=== PATIENT | female | born 1935 | race Caucasian/White ===

== ENCOUNTER 2019-04-12 11:06 | Emergency (ER) | payer MEDICARE ==
[~2019-04-12] VITALS: Ht 167.6 cm; Wt 73.0 kg
[~2019-04-12 11:06] MED LIST: ASPIR 8181 MG PO; ASPIR-LOW81 MG PO; CALCIUM+D PO; CIPRO500 MG PO; FLAGYL250 MG PO; HYDROCODON-ACE1 EA11 PO; LEXAPRO10 MG PO; LOSARTAN-HCTZ1 EACH PO; LOVASTATIN20 MG PO; METOPROLOL TART25 MG PO; MYRBETRIQ50 MG PO; OMEPRAZOLE40 MG PO; OXYBUTYNIN CHLOR5 M1 PO; OXYBUTYNIN CHLOR5 MG PO
--- NOTE | 2019-04-12 11:22 | NUR ---
DR. TALLEY/Kami POND. IN ROOM TO SEE THE PT. AND UPDATE HER ON POC/ORDERS
[2019-04-12] MEDS ORDERED: BENZONATATE 100 MG CAP PO STA (11:33)
--- NOTE | 2019-04-12 11:56 | Diagnostic Imaging Report ---
EXAMINATION: PA and lateral views of the chest. COMPARISON: 10/09/2016 CLINICAL HISTORY: Cough DISCUSSION: Lines/tubes: None. Lungs: The lungs are well inflated and clear. There is no evidence of pneumonia or pulmonary edema. Pleura: There is no pleural effusion or pneumothorax. Heart and mediastinum: Tortuous thoracic aorta. Small hiatal hernia. Bones and soft tissues: No acute bony abnormalities. Degenerative changes in the thoracic spine IMPRESSION: No acute cardiopulmonary abnormalities. Signed by: Dr. Felix Hernandez M.D. on 04/12/2019 11:52 AM
--- NOTE | 2019-04-12 12:12 | NUR ---
UNABLE TO OBTAIN IV ACCESS. 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
[2019-04-12 12:24] LABS: BASOPHILS % 0.5 % (0.0-1.0); EOSINOPHILS # (AUTO) 0.2 (0.0-0.4); EOSINOPHILS % 3.9 % (0.0-6.0); HEMATOCRIT 34.4 % (34.2-44.1); HEMOGLOBIN 11.4 g/dL (12.0-16.0); LYMPHOCYTES % 16.2 % (18.0-39.1); MEAN CORPUSCULAR HEMOGLOBIN 29.5 pg (28-32); MEAN CORPUSCULAR HGB CONC 33.1 g/dL (31-35); MEAN CORPUSCULAR VOLUME 89.1 fL (81-99); MONOCYTES # (AUTO) 0.6 (0.2-0.8); MONOCYTES % 9.2 % (4.4-11.3); NEUTROPHILS # (AUTO) 4.3 (2.1-6.9); NEUTROPHILS % 69.9 % (38.7-80.0); PLATELET COUNT 210 x10e3/uL (140-360); RED BLOOD COUNT 3.86 x10e6/uL (3.6-5.1); RED CELL DISTRIBUTION WIDTH 13.9 % (11.7-14.4)
--- NOTE | 2019-04-12 12:26 | NUR ---
#20G TO THE LEFT WRIST
[2019-04-12 12:34] LABS: INR 0.92; PARTIAL THROMBOPLASTIN TIME 27.9 seconds (23.8-35.5); PROTHROMBIN TIME 12.8 seconds (11.9-14.5)
[2019-04-12 12:43] LABS: ALANINE AMINOTRANSFERASE 25 IU/L (0-55); ALBUMIN 3.5 g/dL (3.5-5.0); ALBUMIN/GLOBULIN RATIO 1.1 (0.8-2.0); ALKALINE PHOSPHATASE 100 IU/L (40-150); ANION GAP 11.8 mmol/L (8-16); BLOOD UREA NITROGEN 11 mg/dL (7-26); BUN/CREATININE RATIO 15 (6-25); CALCIUM 8.9 mg/dL (8.4-10.2); CARBON DIOXIDE 26 mmol/L (22-29); CHLORIDE 102 mmol/L (98-107); CREATINE KINASE 167 IU/L (29-168); CREATININE, SERUM 0.74 mg/dL (0.57-1.11); EST GLOMERULAR FILTRATION RATE > 60 ML/MIN (60-); GLUCOSE 98 mg/dL (74-118); MAGNESIUM 1.9 MG/DL (1.3-2.1); POTASSIUM 3.8 mmol/L (3.5-5.1); SODIUM 136 mmol/L (136-145)
[2019-04-12 12:54] LABS: BILIRUBIN,URINE NEGATIVE (NEGATIVE); CLARITY,URINE SL CLOUDY (CLEAR); COLOR,URINE YELLOW (YELLOW); KETONES,URINE NEGATIVE (NEGATIVE); LEUKOCYTE ESTERASE ,URINE LARGE (NEGATIVE); NITRITE,URINE POSITIVE (NEGATIVE); PROTEIN,URINE DIPSTICK NEGATIVE (NEGATIVE); URINE UROBILINOGEN 0.2 mg/dL (0.2 - 1)
[2019-04-12 13:08] LABS: BACTERIA,URINE MANY /HPF; EPITHELIAL CELLS,URINE FEW /LPF; WBC,URINE (MAN) 21-50 /HPF (0-5)
[2019-04-12] MEDS ORDERED: CEFTRIAXONE SOD 1 GM/NS 50 ML 50 ML IV ONE (13:30)
[2019-04-12] MEDS ORDERED: CEFUROXIME500 MG PO (13:38)
[2019-04-12] MEDS ORDERED: TESSALON PERLE100 MG PO (13:43)
== END 2019-04-12 14:50 | disposition home or self-care (01) ==
LOC: ER 11:06
DX: R05 Cough (principal); J06.9 Acute upper respiratory infection, unspecified; N30.91 Cystitis, unspecified with hematuria; I10 Essential (primary) hypertension; E78.5 Hyperlipidemia, unspecified; F32.9 Major depressive disorder, single episode, unspecified; Z85.828 Personal history of other malignant neoplasm of skin
CPT/HCPCS: 36415; 71046; 80053; 81001; 82550; 82553; 83735; 83880; 84484; 85025; 85610; 85730; 87086; 87186; 87400; 93005; 99284; J0696

== ENCOUNTER 2020-02-13 14:39 | Emergency (ER) | payer MEDICARE ==
[~2020-02-13] VITALS: Ht 167.6 cm; Wt 77.1 kg
[~2020-02-13 14:39] MED LIST changes: +CEFUROXIME500 MG PO; +TESSALON PERLE100 MG PO
[2020-02-13 16:33] LABS: CLARITY,URINE CLEAR (CLEAR); COLOR,URINE YELLOW (YELLOW); LEUKOCYTE ESTERASE ,URINE NEGATIVE (NEGATIVE); NITRITE,URINE NEGATIVE (NEGATIVE); PROTEIN,URINE DIPSTICK NEGATIVE (NEGATIVE)
[2020-02-13 16:34] LABS: BACTERIA,URINE FEW /HPF; BILIRUBIN,URINE NEGATIVE (NEGATIVE); EPITHELIAL CELLS,URINE RARE /LPF; KETONES,URINE NEGATIVE (NEGATIVE); URINE UROBILINOGEN 0.2 mg/dL (0.2 - 1); WBC,URINE (MAN) 0-5 /HPF (0-5)
[2020-02-13] MEDS ORDERED: SODIUM CHLORIDE 0.9% 1000ML 1,000 ML IV STA (16:55)
[2020-02-13 17:17] LABS: BASOPHILS # (AUTO) 0.1 (0.0-0.1); BASOPHILS % 0.8 % (0.0-1.0); EOSINOPHILS # (AUTO) 0.1 (0.0-0.4); EOSINOPHILS % 2.1 % (0.0-6.0); HEMATOCRIT 36.1 % (34.2-44.1); HEMOGLOBIN 11.8 g/dL (12.0-16.0); LYMPHOCYTES # (AUTO) 1.2 (1.0-3.2); LYMPHOCYTES % 17.8 % (18.0-39.1); MEAN CORPUSCULAR HEMOGLOBIN 30.6 pg (28-32); MEAN CORPUSCULAR HGB CONC 32.7 g/dL (31-35); MEAN CORPUSCULAR VOLUME 93.8 fL (81-99); MONOCYTES # (AUTO) 0.4 (0.2-0.8); MONOCYTES % 6.1 % (4.4-11.3); NEUTROPHILS # (AUTO) 4.7 (2.1-6.9); NEUTROPHILS % 72.7 % (38.7-80.0); PLATELET COUNT 194 x10e3/uL (140-360); RED BLOOD COUNT 3.85 x10e6/uL (3.6-5.1); RED CELL DISTRIBUTION WIDTH 12.6 % (11.7-14.4)
[2020-02-13 17:34] LABS: ALBUMIN 4.2 g/dL (3.5-5.0); ALBUMIN/GLOBULIN RATIO 1.4 (0.8-2.0); ANION GAP 15.4 mmol/L (8-16); CALCIUM 8.6 mg/dL (8.4-10.2); CREATININE, SERUM 0.91 mg/dL (0.57-1.11); POTASSIUM 4.4 mmol/L (3.5-5.1)
--- NOTE | 2020-02-13 17:58 | Emergency Department Note ---
History of Present Illnes History of Present Illness Chief Complaint: Genitourinary History of Present Illness This is a 84 year old female pt sent by Dr. Dunne (covering for Dr Barclay - Urology) for evaluation of urinary retention, pt states that she sees Dr. Barclay for urinary incontinence, pt states that she has not been able to urinate since last night, pt appears to have a distended bladder. 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 Any updates have been documented here. Past Medical History Recent Fever: No Clinical Suspicion of Infectio: No New/Unexplained Change in Ment: No Past Medical History: Hypertension, CAD, Hyperlipedemia Other Medical History: SKIN CANCER Past Surgical History: Hernia Repair Other Surgery: right hand surgery (thumb cyst) Social History Smoking Cessation: Never Smoker Counseling Performed: No Alcohol Use: None Any Illegal Drug Use: No TB Exposure/Symptoms: No Physically hurt or threatened: No Family History Family history of heart diseas: No Other Last Tetanus: UNK Any Pre-Existing Lines (PICC,: No Review of Systems Review of Systems Constitutional: Reports no symptoms EENTM: Reports no symptoms Cardiovascular: Reports no symptoms Respiratory: Reports no symptoms Gastrointestinal: Reports no symptoms Genitourinary: Reports as per HPI Musculoskeletal: Reports no symptoms Integumentary: Reports no symptoms Neurological: Reports no symptoms Psychological: Reports no symptoms Endocrine: Reports no symptoms Hematological/Lymphatic: Reports no symptoms Physical Exam Related Data Allergies: Coded Allergies: Penicillins (Verified Allergy, Mild, RASH, 10/07/16) Sulfa (Sulfonamide Antibiotics) (Verified Allergy, Mild, RASH, 11/05/14) atropine (Verified Allergy, Mild, RASH, 11/05/14) codeine (Verified Allergy, Mild, RASH, 08/17/14) hyoscyamine (Verified Allergy, Mild, RASH, 11/05/14) phenobarbital (Verified Allergy, Mild, RASH, 11/05/14) scopolamine (Verified Allergy, Mild, RASH, 11/05/14) [place] And Derivatives (Verified Adverse Reaction, Intermediate, 04/28/15) Pt reports when she drinks any fruit juices, she gets cramps/GI distress. Triage Vital Signs Vital Signs Date Time Temp Pulse Resp B/P (MAP) Pulse Ox O2 Delivery O2 Flow Rate FiO2 02/13/20 15:05 98.1 63 18 139/76 99 Vital signs reviewed: Yes Physical Exam CONSTITUTIONAL Constitutional: Present well-developed, Present well-nourished HENT HENT: Present normocephalic, Present atraumatic, Present oropharynx clear/moist, Present nose normal HENT L/R: Present left ext ear normal, Present right ext ear normal EYES Eyes: Reports PERRL, Reports conjunctivae normal NECK Neck: Present ROM normal PULMONARY Pulmonary: Present effort normal, Present breath sounds normal CARDIOVASCULAR Cardiovascular: Present regular rhythm, Present heart sounds normal, Present capillary refill normal, Present normal rate GASTROINTESTINAL Abdominal: Present soft, Present nontender, Present bowel sounds normal; Absent tender GENITOURINARY Genitourinary: Present exam deferred SKIN Skin: Present warm, Present dry MUSCULOSKELETAL Musculoskeletal: Present ROM normal NEUROLOGICAL Neurological: Present alert, Present oriented x 3, Present no gross motor or sensory deficits PSYCHOLOGICAL Psychological: Present mood/affect normal, Present judgement normal Results Laboratory Result Diagram: 02/13/20 1654 02/13/20 1654 Laboratory Laboratory Tests Test 02/13/20 16:54 02/13/20 15:45 White Blood Count 6.52 x10e3/uL (4.8-10.8) Red Blood Count 3.85 x10e6/uL (3.6-5.1) Hemoglobin 11.8 g/dL (12.0-16.0) Hematocrit 36.1 % (34.2-44.1) Mean Corpuscular Volume 93.8 fL (81-99) Mean Corpuscular Hemoglobin 30.6 pg (28-32) Mean Corpuscular Hemoglobin Concent 32.7 g/dL (31-35) Red Cell Distribution Width 12.6 % (11.7-14.4) Platelet Count 194 x10e3/uL (140-360) Neutrophils (%) (Auto) 72.7 % (38.7-80.0) Lymphocytes (%) (Auto) 17.8 % (18.0-39.1) Monocytes (%) (Auto) 6.1 % (4.4-11.3) Eosinophils (%) (Auto) 2.1 % (0.0-6.0) Basophils (%) (Auto) 0.8 % (0.0-1.0) Neutrophils # (Auto) 4.7 (2.1-6.9) Lymphocytes # (Auto) 1.2 (1.0-3.2) Monocytes # (Auto) 0.4 (0.2-0.8) Eosinophils # (Auto) 0.1 (0.0-0.4) Basophils # (Auto) 0.1 (0.0-0.1) Absolute Immature Granulocyte (auto 0.03 x10e3/uL (0-0.1) Sodium Level 141 mmol/L (136-145) Potassium Level 4.4 mmol/L (3.5-5.1) Chloride Level 105 mmol/L (98-107) Carbon Dioxide Level 25 mmol/L (22-29) Anion Gap 15.4 mmol/L (8-16) Blood Urea Nitrogen 21 mg/dL (7-26) Creatinine 0.91 mg/dL (0.57-1.11) Estimat Glomerular Filtration Rate 59 ML/MIN (60-) BUN/Creatinine Ratio 23 (6-25) Glucose Level 111 mg/dL (74-118) Calcium Level 8.6 mg/dL (8.4-10.2) Total Bilirubin 1.1 mg/dL (0.2-1.2) Aspartate Amino Transf (AST/SGOT) 31 IU/L (5-34) Alanine Aminotransferase (ALT/SGPT) 30 IU/L (0-55) Alkaline Phosphatase 91 IU/L (40-150) Total Protein 7.2 g/dL (6.5-8.1) Albumin 4.2 g/dL (3.5-5.0) Globulin 3.0 g/dL (2.3-3.5) Albumin/Globulin Ratio 1.4 (0.8-2.0) Urine Color Yellow (YELLOW) Urine Clarity Clear (CLEAR) Urine pH 5.5 (5 - 7) Urine Specific [place] >=1.030 (1.010-1.025) Urine Protein Negative (NEGATIVE) Urine Glucose (UA) Negative (NEGATIVE) Urine Ketones Negative (NEGATIVE) Urine Blood Negative (NEGATIVE) Urine Nitrite Negative (NEGATIVE) Urine Bilirubin Negative (NEGATIVE) Urine Urobilinogen 0.2 mg/dL (0.2 - 1) Urine Leukocyte Esterase Negative (NEGATIVE) Urine RBC None /HPF (0-5) Urine WBC 0-5 /HPF (0-5) Urine Epithelial Cells Rare /LPF (NONE) Urine Bacteria Few /HPF (NONE) Lab results reviewed: Yes Imaging Imaging results reviewed: Yes Assessment & Plan Medical Decision Making MDM ? urinary retention - spoke with Dr Dunne - place [facility], send UA/cx r/o UTI Reassessment Reassessment Lanier placed - only 75 cc out, will check CBC, Chem's r/o renal insuff/failure/anuria Labs normal - DC home, Lanier DC'd, F/U Dr Niarnjan Crenshaw, drink plenty of fluids Assessment & Plan Final Impression: (1) Decreased urine output Depart Disposition: HOME, SELF-CARE Last Vital Signs Date Time Temp Pulse Resp B/P (MAP) Pulse Ox O2 Delivery O2 Flow Rate FiO2 02/13/20 15:05 98.1 63 18 139/76 99 Home Meds Active Scripts Benzonatate (TESSALON PERLE) 100 Mg Capsule, 100 MG PO TID PRN for COUGH, #15 CAP Prov:APRIL REYES CASUALTY UNDERWRITER 04/12/19 Cefuroxime Axetil (CEFUROXIME) 500 Mg Tablet, 500 MG PO BID for 7 Days, #14 TAB Prov:APRIL REYES CASUALTY UNDERWRITER 04/12/19 Reported Medications Aspirin (ASPIR 81) 81 Mg Tablet.dr, 81 MG PO DAILY 10/07/16 Omeprazole (OMEPRAZOLE) 40 Mg Capsule.dr, 40 MG PO BID 11/05/14 Losartan/Hydrochlorothiazide (LOSARTAN-HCTZ 50-12.5 MG TAB) 1 Each Tablet, 50 MG PO BID 08/09/14 Lovastatin (LOVASTATIN) 20 Mg Tablet, 20 MG PO DAILY 08/09/14 Medications in the ED Sodium Chloride 1,000 ml @ 0 mls/hr Q0M STAT IV Last administered on 02/13/20at 17:02; Admin Dose 999 MLS/HR; Start 02/13/20 at 16:55; Stop 02/13/20 at 16:56; Status DC EFREN TALLEY MD Feb 13, 2020 17:58
--- OUTSIDE RECORDS SUMMARY | 2020-02-21 14:03 | XMS REPORT | Clinical Summary ---
Author Author [facility] Organization [facility] Address Unknown Phone Unavailable Care Team Providers [facility] Front Desk Clerk Name Role Phone Danyel Corona MD PCP Allergies Comments Active Allergy Reactions Severity Noted Date Penicillins Rash Low 12/29/2016 Sulfa (Sulfonamide Rash Low 12/29/2016 Antibiotics) Medications End Date Status Medication Sig Dispensed Refills Start Date Active losartan-hydrochlorothiaz TK 1 T PO QD 3 10/25 geraldo (HYZAAR) 50-12.5 mg 7 per tablet Active omeprazole (PriLOSEC) 40 TK 1 C PO QD 2 10/23 MG capsule 7 Active ondansetron (ZOFRAN) 4 MG TK 1 T PO 0 06/ tablet QID PRN FOR 7 7 DAYS Active oxybutynin XL TK 1 T PO QD 3 (DITROPAN-XL) 10 MG 24 hr 7 tablet Active aspirin (ECOTRIN) 81 MG Take 81 mg by 0 enteric coated tablet mouth daily. Active Problems Problem Noted Date UTI (urinary tract infection) 01/01/2017 Functional diarrhea 12/31/2016 Complicated UTI (urinary tract infection) 12/29/2016 Social History Date Tobacco Use Types Packs/Day Years Used Never Smoker Drinks/Week oz/Week Comments Alcohol Use No Sex Assigned at Date Recorded Not on file Last Filed Vital Signs Not on file Plan of Treatment Health Maintenance Due Date Last Done Comments SHINGLES VACCINES (#1) 1984 65+ PNEUMOCOCCAL VACCINE 09/04/1999 (1 of 1 - PPSV23) INFLUENZA VACCINE 12/26/2019 Results Not on fileafter 02/12/2019 Insurance Type Payer Benefit Subscriber ID Effective Phone Address Plan / Dates Group HMO [employer] [id number] [facility] Advance Directives For more information, please contact: [phone] Patient Pickle Maker Explanation Type Date Recorded Advance Directives, 12/29/2016 7:53 PM Living Will and Medical Power of Auth Specialist
--- OUTSIDE RECORDS SUMMARY | 2020-02-21 14:03 | XMS REPORT | Continuity of Care Document ---
Author Author [facility] t Organization [facility] Address [address] [place] [address] Phone Unavailable Care Team Providers Care Research Engineer Name Role Phone MD PRANAV ROMERO PCP Louisa TALLEY Attphys Unavailable Payers Payer Name Policy Type Policy Number Effective Date Expiration Date Karen Soto [facility] [id number] 2014 00:00:00 [facility] Problems Condition Name Condition Details Condition Category Status Onset Date Resolution Date Last Treatment Date Treating Clinician Comments Source UTI (urinary tract infection) UTI (urinary tract infection) Disease Active 2017-01-01 00:00:00 Brad Anderson Functional diarrhea Functional diarrhea Disease Active 2016-12-31 00:00 :00 Brad Anderson Complicated UTI (urinary tract infection) Complicated UTI (urinary tract infection) Disease Active 2016-12-29 00:00:00 [facility] gifty [facility] Diarrhea Diarrhea Problem Active 2015-04-27 00:00:00 [facility] Chest pain Chest pain Problem Active 2014-11-05 00:00:00 [facility] Diverticulitis of intestine Diverticulitis Problem Active [facility] Decreased urine output Problem Active [facility] Allergies, Adverse Reactions, Alerts Allergy Name Allergy Type Status Severity Reaction(s) Onset Date Inacti ve Date Treating Clinician Comments Source atropine sulfate DA Active NE 2017-12-13 00:00:00 [facility] scopolamine hydrobromide DA Active NE 2017-12-13 00:00:00 [facility] hyoscyamine sulfate DA Active NE 2017-12-13 00:00:00 [facility] Penicillins DA Active 2017-12-13 00:00:00 [facility] Sulfa (Sulfonamide Antibiotics) DA Active NE 2017-12-13 00 :00:00 [facility] phenobarbital DA Active NE 2017-12-13 00:00:00 [facility] codeine DA Active 2017-12-13 00:00:00 [facility] belladonna alkaloids DA Active NE 2017-12-13 00:00:00 [facility] grapefruit FA Active 2017-12-13 00:00:00 [facility] diclofenac DA Active 2017-12-13 00:00:00 [facility] levofloxacin DA Active NE 2017-12-13 00:00:00 [facility] Penicillins Propensity to adverse reactions to drug Active Rash 2016-12-29 00:00:00 Brad Hector t Sulfa (Sulfonamide Antibiotics) Propensity to adverse reactions to drug Active Rash 2016-12-29 00:00:00 Burton Anderson Penicillin Allergy to substance Active Mild RASH 2016-10-07 00:00:00 [facility] Chiawuli Tak And Derivatives Propensity to adverse reactions Active Mod erate 2015-04-28 00:00:00 [facility] Sulfa (Sulfonamide Antibiotics) Allergy to substance Active Mild RASH 2014-11-05 00:00:00 [facility] Phenobarbital Allergy to substance Active Mild RASH 2014-11-05 00:00: 00 [facility] Atropine Allergy to substance Active Mild RASH 2014-11-05 00:00:00 [facility] Hyoscyamine Allergy to substance Active Mild RASH 2014-11-05 00:00:00 [facility] Scopolamine Allergy to substance Active Mild RASH 2014-11-05 00:00:00 [facility] Codeine Allergy to substance Active Mild RASH 2014-08-17 00:00:00 [facility] Social History Social Habit Start Date Stop Date Quantity Comments Source Sex Assigned At [facility] Alcohol intake 2016-12-29 00:00:00 2016-12-29 00:00:00 Current non-drinker of alcohol (finding) Brad Anderson Smoking Status Start Date Stop Date Source Never smoker Brad villalobos Medications Ordered Medication Name Filled Medication Name Start Date Stop Da te Current Medication? Ordering Clinician Indication Dosage Frequency Signature (SIG) Comments Components Source Benzonatate (Tessalon Perle) 100 Mg CAPSULE Benzonatat e (Tessalon Perle) 100 Mg CAPSULE 2019-04-12 12:43:00 Yes 100 Thre e Times A Day as needed for Cough [facility] Cefuroxime Axetil (Cefuroxime) 500 Mg TABLET Cefuroxim e Axetil (Cefuroxime) 500 Mg TABLET 2019-04-12 12:38:00 Yes 500 Twice A Day [facility] aspirin (ECOTRIN) 81 MG enteric coated tablet 2017-01-02 16:33:0 2 Yes 81mg QD Take 81 mg by mouth daily. Nam Anderson losartan-hydrochlorothiazide (HYZAAR) 50-12.5 mg per tablet 2016-11-11 00:00:00 Yes TK 1 T PO QD Dayne Anderson ondansetron (ZOFRAN) 4 MG tablet 2016-11-01 00:00:00 Yes TK 1 T PO QID PRN FOR 7 DAYS Brad Anderson omeprazole (PriLOSEC) 40 MG capsule 2016-10-23 00:00:00 Yes TK 1 C PO QD Brad Anderson oxybutynin XL (DITROPAN-XL) 10 MG 24 hr tablet 2016-10-13 00:00: 00 Yes TK 1 T PO QD Brad chahal Aspirin (Aspir 81) 81 Mg TABLET. Aspirin (Aspir 81) 81 Mg TABLET. Yes 81 Daily [facility] Losartan/Hydrochlorothiazide (Losartan-Hctz 50-12.5 Mg Tab) 1 Each TABLET Losartan/Hydrochlorothiazide (Losartan-Hctz 50-12.5 Mg Tab) 1 Each TABLET Yes 50 Twice A Day [facility] Lovastatin Lovastatin Yes 20 Daily [facility] Omeprazole Omeprazole Yes 40 Twice A Day [facility] Oxybutynin Chloride (Oxybutynin Chloride Er) 5 Mg TAB. ER.24 Oxybutynin Chloride (Oxybutynin Chloride Er) 5 Mg TAB.ER.24 2016-10-11 00:00:[address] [facility] Mirabegron (Myrbetriq) 50 Mg TAB.ER.24H Mirabegron (Myrbetri q) 50 Mg TAB.ER.24H 2015-12-23 00:00:00 No 50 Daily [facility] Aspirin (Aspir-Low) 81 Mg TABLET. Aspirin (Aspir-Low) 81 Mg TA BLET. 2015-12-21 00:00:00 No 81 Daily [facility] Ciprofloxacin Hcl (Cipro) 500 Mg TABLET Ciprofloxacin Hcl (C ipro) 500 Mg TABLET 2015-12-21 00:00:00 No 500 Every 12 Hours [facility] Metoprolol Tartrate Metoprolol Tartrate 2015-12-21 00:00:00 No 25 Twice A Day [facility] Metronidazole (Flagyl) 250 Mg TABLET Metronidazole (Flagyl) 250 Mg TABLET 2015-12-21 00:00:00 No 500 Three Times A Day [facility] Oxybutynin Chloride Oxybutynin Chloride 2015-12-21 00:00:00 No 5 Twice A Day [facility] Escitalopram Oxalate (Lexapro) 10 Mg TABLET Escitalopr am Oxalate (Lexapro) 10 Mg TABLET 2015-04-28 00:00:00 No 10 Daily [facility] Calcium+D Calcium+D 2014-11-05 00:00:00 No 600 Daily [facility] Hydrocodone Bit/Acetaminophen (Hydrocodon-Acetaminophe n 5-325) 1 Each TABLET Hydrocodone Bit/Acetaminophen (Hydrocodon-Acetaminophen 5-325) 1 Each TABLET 2014-08-11 00:00:00 No [facility] Vital Signs Vital Name Observation Time Observation Value Comments Source Weight 2020-02-13 15:05:00 170 [lb_av] [facility] BMI (Body Mass Index) 2020-02-13 15:05:00 27.4 kg/m2 [facility] Procedures This patient has no known procedures. Plan of Care Planned Activity Planned Date Details Comments Source Future Scheduled Test 2019-12-26 00:00:00 INFLUENZA VACCINE [code = INFLUENZA VACCINE] [facility] Future Scheduled Test 1999-09-04 00:00:00 65+ PNEUMOCOCCAL V ACCINE (1 of 1 - PPSV23) [code = 65+ PNEUMOCOCCAL VACCINE (1 of 1 - PPSV23)] [facility] Future Scheduled Test 1984 00:00:00 SHINGLES VACCINES (#1) [code = SHINGLES VACCINES (#1)] [facility] Instructions Abdominal Pain - Adult [facility] Encounters Start Date/Time End Date/Time Encounter Type Admission Type [facility] Care Department Encounter ID Source 2020-02-13 15:01:00 2020-02-13 18:02:00 Departed Emergency Room [facility] [id number] [facility] 2019-07-01 06:55:00 2019-07-01 06:55:00 [id number] 2019-04-12 11:06:00 2019-04-12 14:50:00 Departed Emergency Room 1 EFREN TALLEY [facility] [id number] [facility] Results Test Description Test Time Test Comments Results Result Comments Source Blood leukocytes automated count (number/volume) 2020-02-13 16:54:00 Test Item White Blood Count (test code = 6690-2) 6.52 4.8-10.8 [facility] count (number/volume)2020-02-13 16:54:00* Test Item Value Reference Range Interpretation Comments Red Blood Count (test code = 789-8) 3.85 3.6-5.1 [facility] measurement (moles/volume)2020-02-13 16:54:00* Test Item Value Reference Range Interpretation Comments Hemoglobin (test code = 19442-7) 11.8 12.0-16.0 [facility] Center[facility] blood hematocrit (volume fraction)2020-02-13 16:54:00* Test Item Value Reference Range Interpretation Comments Hematocrit (test code = 4544-3) 36.1 34.2-44.1 [facility] erythrocyte mean corpuscular eolhxq6772-59-49 16:54:00* Test Item Value Reference Range Interpretation Comments Mean Corpuscular Volume (test code = 787-2) 93.8 81-99 [facility] Center[facility] erythrocyte mean corpuscular hemoglobin (mass per erythrocyte)2020-02-13 16:54:00* Test Item Value Reference Range Interpretation Comments Mean Corpuscular Hemoglobin (test code = 785-6) 30.6 28-32 [facility] CenterAutat[facility] hospitaled erythrocyte mean corpuscular hemoglobin concentration measurement (mass/volume)2020-02-13 16:54:00* Test Item Value Reference Range Interpretation Comments Mean Corpuscular Hemoglobin Concent (test code = 786-4) 32.7 31-35 [facility] CenterRDW LhtUo-Msj9113-44-19 16:54:00* Test Item Value Reference Range Interpretation Comments Red Cell Distribution Width (test code = 81212-7) 12.6 11.7 -14.4 [facility] CenterAut[facility] hospitaled blood platelet count (count/volume)2020-02-13 16:54:00* Test Item Value Reference Range Interpretation Comments Platelet Count (test code = 777-3) 194 140-360 [facility] CenterAutomated blood segmented neutrophil count as percentage of total gopycdiyvb4911-01-53 16:54:00* Test Item Value Reference Range Interpretation Comments Neutrophils (%) (Auto) (test code = 05126-5) 72.7 38.7-80.0 [facility] CenterAutomated blood lymphocyte count as percentage ot total czmjkslepk7057-41-80 16:54:00* Test Item Value Reference Range Interpretation Comments Lymphocytes (%) (Auto) (test code = 736-9) 17.8 18.0-39.1 [facility] CenterAutomated blood monocyte count as percentage of total fwijzovvwr2564-90-90 16:54:00* Test Item Value Reference Range Interpretation Comments Monocytes (%) (Auto) (test code = 5905-5) 6.1 4.4-11.3 [facility] CenterAutomated blood eosinophil count as percentage of total nsjdwefdtj7819-76-68 16:54:00* Test Item Value Reference Range Interpretation Comments Eosinophils (%) (Auto) (test code = 713-8) 2.1 0.0-6.0 [facility] CenterAutomated blood basophil count as percentage of total ahbdulebdj7666-42-02 16:54:00* Test Item Value Reference Range Interpretation Comments Basophils (%) (Auto) (test code = 706-2) 0.8 0.0-1.0 [facility] CenterFluoroscopic procedure less than one hour vezxjxhk5849-15-77 16:54:00* Test Item Value Reference Range Interpretation Comments IM GRANULOCYTES % (test code = IM GRANULOCYTES %) 0.5 0.0- 1.0 [facility] CenterAutomated blood neutrophil count 2020-02-13 16:54:00* Test Item Value Reference Range Interpretation Comments Neutrophils # (Auto) (test code = 751-8) 4.7 2.1-6.9 [facility] Center[facility] lymphocytes count (number/volume) 2020-02-13 16:54:00* Test Item Value Reference Range Interpretation Comments Lymphocytes # (Auto) (test code = 71448-1) 1.2 1.0-3.2 [facility] Center[facility] monocytes automated count (number/volume)2020-02-13 16:54:00* Test Item Value Reference Range Interpretation Comments Monocytes # (Auto) (test code = 742-7) 0.4 0.2-0.8 [facility] CenterAutomated blood eosinophil count 2020-02-13 16:54:00* Test Item Value Reference Range Interpretation Comments Eosinophils # (Auto) (test code = 711-2) 0.1 0.0-0.4 [facility] CenterAutomated blood basophil count (count/volume)2020-02-13 16:54:00* Test Item Value Reference Range Interpretation Comments Basophils # (Auto) (test code = 704-7) 0.1 0.0-0.1 [facility] CenterFluoroscopic procedure less than one hour calikzjg5553-88-21 16:54:00* Test Item Value Reference Range Interpretation Comments Absolute Immature Granulocyte (auto (deion t code = Absolute Immature Granulocyte (auto) 0.03 0-0.1 [facility] sodium measurement (moles/volume)2020-02-13 16:54:00* Test Item Value Reference Range Interpretation Comments Sodium Level (test code = 2951-2) 141 136-145 [facility]wooderum or plasma potassium measurement (moles/volume)2020-02-13 16:54:00* Test Item Value Reference Range Interpretation Comments Potassium Level (test code = 2823-3) 4.4 3.5-5.1 [facility]wood[facility] or plasma chloride measurement (moles/volume)2020-02-13 16:54:00* Test Item Value Reference Range Interpretation Comments Chloride Level (test code = 2075-0) 105 98-107 [facility]wooderum or plasma carbon dioxide, total measurement (moles/volume)2020-02-13 16:54:00* Test Item Value Reference Range Interpretation Comments Carbon Dioxide Level (test code = 2028-9) 25 22-29 [facility]wood[facility]um or plasma anion voo7670-93-78 16:54:00* Test Item Value Reference Range Interpretation Comments Anion Gap (test code = 06197-4) 15.4 8-16 [facility]wood[facility] or plasma urea nitrogen measurement (mass/volume)2020-02-13 16:54:00* Test Item Value Reference Range Interpretation Comments Blood Urea Nitrogen (test code = 3094-0) 21 7-26 [facility]wood[facility] or plasma creatinine measurement (mass/volume)2020-02-13 16:54:00* Test Item Value Reference Range Interpretation Comments Creatinine (test code = 2160-0) 0.91 0.57-1.11 [facility] or plasma urea nitrogen/creatinine mass vorib6663-83-26 16:54:00* Test Item Value Reference Range Interpretation Comments BUN/Creatinine Ratio (test code = 3097-3) 23 6-25 [facility] CenterEstimated glomerular filtration rate (GFR) yaopicilbfmbk3796-71-17 16:54:00* Test Item Value Reference Range Interpretation Comments Estimat Glomerular Filtration Rate (test code = 060222388) 59 >60 Ranges were taken from the National Kidney Disease Education Program and the [facility] Kidney Foundation literature.Reference ranges:60 or greater: Sacyoc80-73 ( for 3 consecutive months): Chronic kidney disease 15 or less: Kidney failureNacogdoches Medical CenterGlucose sbwjudpzvmr4276-53-90 16:54:00* Test Item Value Reference Range Interpretation Comments Glucose Level (test code = MHD4268) 111 74-118 [facility] or plasma calcium measurement (mass/volume)2020-02-13 16:54:00* Test Item Value Reference Range Interpretation Comments Calcium Level (test code = 03345-1) 8.6 8.4-10.2 [facility]wood[facility] or plasma total bilirubin measurement (mass/volume)2020-02-13 16:54:00* Test Item Value Reference Range Interpretation Comments Total Bilirubin (test code = 1975-2) 1.1 0.2-1.2 [facility] CenterFluoroscopic procedure less than one hour llelilym0098-83-64 16:54:00* Test Item Value Reference Range Interpretation Comments Aspartate Amino Transf (AST/SGOT) (test code = Aspartate Amino Transf (AST/SGOT)) 31 5-34 [facility]wooder[facility] or plasma alanine aminotransferase measurement (enzymatic activity/volume)2020-02-13 16:54:00* Test Item Value Reference Range Interpretation Comments Alanine Aminotransferase (ALT/SGPT) (test code = 1742-6) 30 0-55 [facility]wood[facility] or plasma protein measurement (mass/volume)2020-02-13 16:54:00* Test Item Value Reference Range Interpretation Comments Total Protein (test code = 2885-2) 7.2 6.5-8.1 [facility]wood[facility] or plasma albumin measurement (mass/volume)2020-02-13 16:54:00* Test Item Value Reference Range Interpretation Comments Albumin (test code = 1751-7) 4.2 3.5-5.0 [facility] CenterPlasma globulin measurement (mass/volume) 2020-02-13 16:54:00* Test Item Value Reference Range Interpretation Comments Globulin (test code = 43804-0) 3.0 2.3-3.5 [facility]wood[facility] or plasma albumin/globulin mass mvzab3956-60-37 16:54:00* Test Item Value Reference Range Interpretation Comments Albumin/Globulin Ratio (test code = 1759-0) 1.4 0.8-2.0 [facility] or plasma alkaline phosphatase measurement (enzymatic activity/volume)2020-02-13 16:54:00* Test Item Value Reference Range Interpretation Comments Alkaline Phosphatase (test code = 6768-6) 91 40-150 [facility] CenterUrine color xljwlmcwbxlqn3331-04-24 15:45:00* Test Item Value Reference Range Interpretation Comments Urine Color (test code = 5778-6) YELLOW YELLOW [facility] CenterUrine twafmyy2024-61-09 15:45:00* Test Item Value Reference Range Interpretation Comments Urine Clarity (test code = 85789-7) CLEAR CLEAR [facility]woodpecific gravity of Urine by Test strip 2020-02-13 15:45:00* Test Item Value Reference Range Interpretation Comments Urine Specific [employer] (test code = 5811-5) >=1.030 1.010-1.02 5 [facility] CenterUrine pH measurement by automated test etmsw9246-46-94 15:45:00* Test Item Value Reference Range Interpretation Comments Urine pH (test code = 78309-0) 5.5 5-7 [facility] CenterUrine leukocyte esterase detection by mxgppsdt2255-88-35 15:45:00* Test Item Value Reference Range Interpretation Comments Urine Leukocyte Esterase (test code = 5799-2) NEGATIVE NEGATIVE [facility] CenterUrine nitrite ykydaciwx8060-35-59 15:45:00* Test Item Value Reference Range Interpretation Comments Urine Nitrite (test code = 27859-6) NEGATIVE NEGATIVE [facility] CenterUrine protein measurement by test strip (mass/volume)2020-02-13 15:45:00* Test Item Value Reference Range Interpretation Comments Urine Protein (test code = 5804-0) NEGATIVE NEGATIVE [facility] CenterUrine glucose ljoyomllu9120-41-36 15:45:00* Test Item Value Reference Range Interpretation Comments Urine Glucose (UA) (test code = 2349-9) NEGATIVE NEGATIVE [facility] CenterUrine ketones detection by automated test vpvek7433-50-12 15:45:00* Test Item Value Reference Range Interpretation Comments Urine Ketones (test code = 43834-7) NEGATIVE NEGATIVE [facility] CenterUrine urobilinogen measurement by test strip (mass/volume)2020-02-13 15:45:00* Test Item Value Reference Range Interpretation Comments Urine Urobilinogen (test code = 08435-0) 0.2 0.2-1 [facility] CenterUrine total bilirubin measurement (mass/volume)2020-02-13 15:45:00* Test Item Value Reference Range Interpretation Comments Urine Bilirubin (test code = 1978-6) NEGATIVE NEGATIVE [facility] CenterUrine erythrocytes engrxzlfl7745-89-25 15:45:00* Test Item Value Reference Range Interpretation Comments Urine Blood (test code = 09732-8) NEGATIVE NEGATIVE [facility] CenterAutomated urine sediment leukocyte count by microscopy (number/high power field)2020-02-13 15:45:00* Test Item Value Reference Range Interpretation Comments Urine WBC (test code = 5821-4) 0-5 0-5 [facility] CenterErythrocytes detection in urine sediment by light wrogpewgld6679-41-64 15:45:00* Test Item Value Reference Range Interpretation Comments Urine RBC (test code = 01029-8) NONE 0-5 [facility] CenterBacteria detection in urine sediment by light nginaitrfc5940-53-09 15:45:00* Test Item Value Reference Range Interpretation Comments Urine Bacteria (test code = 55195-0) FEW NONE [facility] CenterEpithelial cells detection in urine sediment by light tpdkifbicz4183-93-93 15:45:00* Test Item Value Reference Range Interpretation Comments Urine Epithelial Cells (test code = 28714-9) RARE NONE [facility]- [place] BONE 3 XYWSK6462-22-36 16:08:00 FAX: Bakari Field MD [phone] [place]: St: REG FAX: Pranav Elena MD [phone] Name: ALLEN VALLADARES [facility] : 1935 Age/S: 84/F [address] [place] [address] Bl Unit #: [id number] Loc: [place] [address] Phys: Bakari Delaney MD Acct: [id number] Dis Date: Status: REG CLI PHONE #: [phone] Exam Date: 12/07/2019 1400 FAX #: [phone] Reason: OSTEMYLITIS RT THUMB Report Has Been Amended EXAMS: CPT CODE: [id number] NM BONE 3 PHASE 21983 Addendum - 12/07/2019 SIGNED 12/07/2019 ADDENDUM: [id number] Findings were discussed with Bakari Delaney MD on 12/07/2019 4:02 PM. at 1608 Reported and signed by: Ruben Titus M.D. Report PROCEDURE: NUCLEAR MEDICINE THREE PHASE BONE SCAN INDICATION: Os teomyelitis right thumb. Patient relates history of cyst removal from rig ht thumb with orthopedic pins in place. COMPARISON: There are no p revious relevant studies available for correlation. TECHNIQU E: 25 mCi Tc99m HDP administered intravenously, left antecubital at 1115 h ours. 3 phase bone scan performed centered over the hands. FINDINGS: FLOW IMAGES: Flow images demonstrate hyperemia to the right th umb and right forearm. BLOOD POOL IMAGES: Blood pool images demonstrate increased soft tissue uptake in the right thumb. DELAYED IMAGES: 2 hour delayed images demonstrate increased activity in t he right thumb most pronounced at the interphalangeal and metacarpophalang eal joints. IMPRESSION: 1. Abnormal three-phase bone s can demonstrating hyperemia, soft tissue and skeletal uptake in the righ t thumb. Activity most pronounced at the interphalangeal and metacarpop halangeal joints. Acute inflammatory arthritis, osteomyelitis and heali ng trauma/postsurgical change in the differential. Please correlate wit h PAGE 1 Signed Report (CONTINUED) FAX: Bakari Field MD [phone] [place] St: REG FAX: Pranav Elena MD [phone] Name: ALLEN VALLADARES [facility] : 1935 Age/S: 84/F [address] [place] [address] Unit #: [id number] Loc: [place] [address] Phys: Bakari Delaney MD Acct: [id number] Dis Date: Status: REG CLI PHONE #: [phone] Exam Date: 12/07/2019 1400 FAX #: [phone] Reason: OSTEMYLITIS RT THUMB Report Has Been Amended EXAMS: CPT CODE: [id number] NM BONE 3 PHASE 96715 <Continued> clinical and current radiographic findings. SL: GENE at 1412 Reported and signed by: Ruben Titus M.D. CC: Bakari Delaney MD; Pranav Romero MD Technologist: Melisa Castillo, RT(N) [facility]; ... Trngard Date/Time/By: 12/07/19 20 (8782) : By: [email or web address] Orig Print D/T: S: 12/07/2019 (9235) PAGE 2 Signed Report - NM BONE 3 [id number] 14:12:00 FAX: Bakari Field MD [phone] [place]: St: REG FAX: Pranav Elena MD [phone] Name: ALLEN VALLADARES [facility] : 1935 Age/S: 84/F [address] [place] [address] Unit #: [id number] Loc: [place] [address] Phys: Bakari Delaney MD Acct: [id number] Dis Date: Status: REG CLI PHONE #: [phone] Exam Date: 12/07/2019 1400 FAX #: [phone] Reason: OSTEMYLITIS RT THUMB EXAMS: CPT CODE: [id number] NM BONE 3 PHASE 06542 PROCEDURE: NUCLEAR MEDICINE THREE PHASE BONE SCAN INDICATION: Osteomyelitis right thumb. Patient relates history of cyst re moval from right thumb with orthopedic pins in place. COMPARISON: There are no previous relevant studies available for correlation. TECHNIQUE: 25 mCi Tc99m HDP administered intravenously, left antecub ital at 1115 hours. 3 phase bone scan performed centered over the hands. FINDINGS: FLOW IMAGES: Flow images demonstrate hyperemia to the right thumb and right forearm. BLOOD POOL IMAGES: Blood pool images demonstrate increased soft tissue uptake in the right thumb. DELAYED IMAGES: 2 hour delayed images demonstrate increased activity in the right thumb most pronounced at the interphalangeal and me tacarpophalangeal joints. IMPRESSION: 1. Abnormal thre e-phase bone scan demonstrating hyperemia, soft tissue and skeletal upta ke in the right thumb. Activity most pronounced at the interphalangeal and metacarpophalangeal joints. Acute inflammatory arthritis, osteomyel itis and healing trauma/postsurgical change in the differential. Please correlate with clinical and current radiographic findings. SL: GENE at 1412 Reported and signed by: Ruben Titus M.D. CC: Bakari Delaney MD; Pranav Romero MD Technologist: Melisa Castillo, RT(N) [employer]; ... Trnscrd Date/Time/By: 12/07/2019 (141) : By: [email or web address] Orig Print D/T: S: 12/07/2019 (2076) PAGE 1 Signed Report COMPREHENSIVE METABOLIC [id number] 06:02:00* Test Item Value Reference Range Interpretation Comments SODIUM (test code = NA) 137 mmol/L 136-145 N POTASSIUM (test code = K) 3.2 mmol/L 3.5-5.1 L CHLORIDE (test code = CL) 102.0 mmol/L 98-107 N CARBON DIOXIDE (test code = CO2) 29.0 mmol/L 21-32 N ANION GAP (test code = GAP) 9.2 10-20 L GLUCOSE (test code = GLU) 97 mg/dL 74-106 N BLOOD UREA NITROGEN (test code = BUN) 16 mg/dL 7-18 N GLOMERULAR FILTRATION RATE (test code = GFR) > 60 mL/min >=60 Estimated GFR by using Modified MDRD formula.Chronic kidney disease is defined as either kidney damageor GFR <60 mL/min/1.73 m2 for >3 months. CREATININE (test code = CREAT) 0.70 mg/dL 0.55-1.02 N Note change in reference range due to change in reagent. BUN/CREATININE RATIO (test code = BUN/CREA) 22.9 10-20 H TOTAL PROTEIN (test code = PROT) 6.0 gram/dL 6.4-8.2 L ALBUMIN (test code = ALB) 2.8 g/dL 3.4-5.0 L GLOBULIN (test code = GLOB) 3.2 gram/dL 2.7-4.2 N ALBUMIN/GLOBULIN RATIO (test code = A/G) 0.9 0.75-1.50 N CALCIUM (test code = CA) 7.9 mg/dL 8.5-10.1 L BILIRUBIN TOTAL (test code = BILT) 1.50 mg/dL 0.0-1.0 H SGOT/AST (test code = AST) 38 IUnit/L 15-37 H SGPT/ALT (test code = ALT) 40 IUnit/L 12-78 N ALKALINE PHOSPHATASE TOTAL (test code = ALKP) 94 IUnit/L 45-117 N Note change in reference range due to change in reagent. CBC W/AUTO [id number] 05:12:00* Test Item Value Reference Range Interpretation Comments WHITE BLOOD CELL (test code = WBC) 9.4 K/mm3 4.5-12.5 N RED BLOOD CELL (test code = RBC) 3.81 mill/mm3 3.7-5.2 N HEMOGLOBIN (test code = HGB) 11.1 gram/dL 11.5-15.5 L HEMATOCRIT (test code = HCT) 34.4 % 36.0-46.0 L MEAN CELL VOLUME (test code = MCV) 90.3 fL 80-98 N MEAN CELL HGB (test code = MCH) 29.1 picogram 27.0-33.0 N MEAN CELL HGB CONCETRATION (test code = MCHC) 32.3 gram/dL 33.0-36. 0 L RED CELL DISTRIBUTION WIDTH (test code = RDW) 13.7 % 11.6-16. 2 N RED CELL DISTRIBUTION WIDTH SD (test code = RDW-SD) 44.6 fL 37 .0-51.0 N PLATELET COUNT (test code = PLT) 233 K/mm3 150-450 N MEAN PLATELET VOLUME (test code = MPV) 10.4 fL 6.7-11.0 N NEUTROPHIL % (test code = NT%) 72.3 % 39.0-69.0 H IMMATURE GRANULOCYTE % (test code = IG%) 0.2 % 0.0-5.0 N LYMPHOCYTE % (test code = LY%) 18.6 % 25.0-55.0 L MONOCYTE % (test code = MO%) 7.5 % 0.0-10.0 N EOSINOPHIL % (test code = EO%) 1.1 % 0.0-5.0 N BASOPHIL % (test code = BA%) 0.3 % 0.0-1.0 N NUCLEATED RBC % (test code = NRBC%) 0.0 % 0-0 N NEUTROPHIL # (test code = NT#) 6.78 K/mm3 1.8-7.7 N IMMATURE GRANULOCYTE # (test code = IG#) 0.02 x10 3/uL 0-0.03 N LYMPHOCYTE # (test code = LY#) 1.74 K/mm3 1.0-5.0 N MONOCYTE # (test code = MO#) 0.70 K/mm3 0-0.8 N EOSINOPHIL # (test code = EO#) 0.10 K/mm3 0.0-0.5 N BASOPHIL # (test code = BA#) 0.03 K/mm3 0.0-0.2 N NUCLEATED RBC # (test code = NRBC#) 0.00 K/mm3 0.0-0.1 N MANUAL DIFF REQUIRED (test code = MDIFF) NO BASIC METABOLIC [id number] 12:06:00* Test Item Value Reference Range Interpretation Comments SODIUM (test code = NA) 140 mmol/L 136-145 N POTASSIUM (test code = K) 3.5 mmol/L 3.5-5.1 N CHLORIDE (test code = CL) 104.0 mmol/L 98-107 N CARBON DIOXIDE (test code = CO2) 31.0 mmol/L 21-32 N ANION GAP (test code = GAP) 8.5 10-20 L GLUCOSE (test code = GLU) 99 mg/dL 74-106 N BLOOD UREA NITROGEN (test code = BUN) 15 mg/dL 7-18 N GLOMERULAR FILTRATION RATE (test code = GFR) > 60 mL/min >=60 Estimated GFR by using Modified MDRD formula.Chronic kidney disease is defined as either kidney damageor GFR <60 mL/min/1.73 m2 for >3 months. CREATININE (test code = CREAT) 0.70 mg/dL 0.55-1.02 N Note change in reference range due to change in reagent. BUN/CREATININE RATIO (test code = BUN/CREA) 20.9 10-20 H CALCIUM (test code = CA) 8.6 mg/dL 8.5-10.1 N BASIC METABOLIC [id number] 11:59:00* Test Item Value Reference Range Interpretation Comments SODIUM (test code = NA) 140 mmol/L 136-145 N POTASSIUM (test code = K) 3.5 mmol/L 3.5-5.1 N CHLORIDE (test code = CL) 104.0 mmol/L 98-107 N CARBON DIOXIDE (test code = CO2) mmol/L 21-32 ANION GAP (test code = GAP) 10-20 GLUCOSE (test code = GLU) mg/dL 74-106 BLOOD UREA NITROGEN (test code = BUN) mg/dL 7-18 GLOMERULAR FILTRATION RATE (test code = GFR) mL/min >=60 CREATININE (test code = CREAT) mg/dL 0.55-1.02 BUN/CREATININE RATIO (test code = BUN/CREA) 10-20 CALCIUM (test code = CA) mg/dL 8.5-10.1 BASIC METABOLIC [id number] 11:59:00* Test Item Value Reference Range Interpretation Comments SODIUM (test code = NA) 140 mmol/L 136-145 N POTASSIUM (test code = K) 3.5 mmol/L 3.5-5.1 N CHLORIDE (test code = CL) 104.0 mmol/L 98-107 N CARBON DIOXIDE (test code = CO2) mmol/L 21-32 ANION GAP (test code = GAP) 10-20 GLUCOSE (test code = GLU) mg/dL 74-106 BLOOD UREA NITROGEN (test code = BUN) mg/dL 7-18 GLOMERULAR FILTRATION RATE (test code = GFR) mL/min >=60 CREATININE (test code = CREAT) mg/dL 0.55-1.02 BUN/CREATININE RATIO (test code = BUN/CREA) 10-20 CALCIUM (test code = CA) 8.6 mg/dL 8.5-10.1 N CBC W/AUTO [id number] 11:16:00* Test Item Value Reference Range Interpretation Comments WHITE BLOOD CELL (test code = WBC) 6.8 K/mm3 4.5-12.5 N RED BLOOD CELL (test code = RBC) 4.28 mill/mm3 3.7-5.2 N HEMOGLOBIN (test code = HGB) 12.5 gram/dL 11.5-15.5 N HEMATOCRIT (test code = HCT) 38.7 % 36.0-46.0 N MEAN CELL VOLUME (test code = MCV) 90.4 fL 80-98 N MEAN CELL HGB (test code = MCH) 29.2 picogram 27.0-33.0 N MEAN CELL HGB CONCETRATION (test code = MCHC) 32.3 gram/dL 33.0-36. 0 L RED CELL DISTRIBUTION WIDTH (test code = RDW) 13.4 % 11.6-16. 2 N RED CELL DISTRIBUTION WIDTH SD (test code = RDW-SD) 43.9 fL 37 .0-51.0 N PLATELET COUNT (test code = PLT) 264 K/mm3 150-450 N MEAN PLATELET VOLUME (test code = MPV) 10.3 fL 6.7-11.0 N NEUTROPHIL % (test code = NT%) 64.5 % 39.0-69.0 N IMMATURE GRANULOCYTE % (test code = IG%) 0.3 % 0.0-5.0 N LYMPHOCYTE % (test code = LY%) 25.0 % 25.0-55.0 N MONOCYTE % (test code = MO%) 6.7 % 0.0-10.0 N EOSINOPHIL % (test code = EO%) 2.9 % 0.0-5.0 N BASOPHIL % (test code = BA%) 0.6 % 0.0-1.0 N NUCLEATED RBC % (test code = NRBC%) 0.0 % 0-0 N NEUTROPHIL # (test code = NT#) 4.40 K/mm3 1.8-7.7 N IMMATURE GRANULOCYTE # (test code = IG#) 0.02 x10 3/uL 0-0.03 N LYMPHOCYTE # (test code = LY#) 1.71 K/mm3 1.0-5.0 N MONOCYTE # (test code = MO#) 0.46 K/mm3 0-0.8 N EOSINOPHIL # (test code = EO#) 0.20 K/mm3 0.0-0.5 N BASOPHIL # (test code = BA#) 0.04 K/mm3 0.0-0.2 N NUCLEATED RBC # (test code = NRBC#) 0.00 K/mm3 0.0-0.1 N MANUAL DIFF REQUIRED (test code = MDIFF) NO CBC W/AUTO [id number] 11:12:00* Test Item Value Reference Range Interpretation Comments WHITE BLOOD CELL (test code = WBC) K/mm3 4.5-12.5 RED BLOOD CELL (test code = RBC) mill/mm3 3.7-5.2 HEMOGLOBIN (test code = HGB) 12.5 gram/dL 11.5-15.5 N HEMATOCRIT (test code = HCT) 38.7 % 36.0-46.0 N MEAN CELL VOLUME (test code = MCV) fL 80-98 MEAN CELL HGB (test code = MCH) picogram 27.0-33.0 MEAN CELL HGB CONCETRATION (test code = MCHC) gram/dL 33.0-36. 0 RED CELL DISTRIBUTION WIDTH (test code = RDW) % 11.6-16. 2 RED CELL DISTRIBUTION WIDTH SD (test code = RDW-SD) fL 37 .0-51.0 PLATELET COUNT (test code = PLT) K/mm3 150-450 MEAN PLATELET VOLUME (test code = MPV) fL 6.7-11.0 NEUTROPHIL % (test code = NT%) % 39.0-69.0 IMMATURE GRANULOCYTE % (test code = IG%) % 0.0-5.0 LYMPHOCYTE % (test code = LY%) % 25.0-55.0 MONOCYTE % (test code = MO%) % 0.0-10.0 EOSINOPHIL % (test code = EO%) % 0.0-5.0 BASOPHIL % (test code = BA%) % 0.0-1.0 NEUTROPHIL # (test code = NT#) K/mm3 1.8-7.7 LYMPHOCYTE # (test code = LY#) K/mm3 1.0-5.0 MONOCYTE # (test code = MO#) K/mm3 0-0.8 EOSINOPHIL # (test code = EO#) K/mm3 0.0-0.5 BASOPHIL # (test code = BA#) K/mm3 0.0-0.2 - CT HEAD/BRAIN W/O [id number] 14:54:00 Name: ALLEN VALLADARES [facility] : 1935 Age/S: 83 / F [address] Unit #: [id number] Loc: [place] [address] Phys: Loly Lord MD Acct: [id number] Dis Date: Status: ADM IN PHONE #: [phone] Exam Date: 05/17/2019 1458 FAX #: [phone] Reason: SYNCOPE EXAMS: CPT CODE: [id number] CT HEAD/BRAIN W/O CONT [id number] HISTORY: SYNCOPE TECHNIQUE: Noncontrast 2.[address] of the head. Automated exposure control for dose reduction; DLP: 928 mGy-cm. COMPARISON: 12/13/17 FINDINGS: No acute hemorrhage. No CT evidence of acute infarct. Moderate periventricular chronic microvascular ischemic changes. Chronic bilateral basal ganglia lacunar infarcts. No intracranial mass or mass effect. Mild parenchymal atrophy. No hydrocephalus. No extra-axial fluid collection. Bilateral maxillary sinus mucosal thickening and fluid. Mastoid air cells and middle ear cavities are clear. Bilateral lens implants. Calvarium and skull base are intact. IMPRESSION: No acute intracranial process. Moderate findings of chronic microvascular ischemia. Bilateral maxillary sinus disease. LOCA TION: LP at 9136 Reported and signed by: Lyndsay jessica D.O. CC: Loly Lord MD Technolo gist:Skye Dominique RT(R),CT CTDI: DLP: Trnscb Date/Time: 05/17/2019 (4051) [email or web address] Orig Print D/T: S: 05/17/2019 (9635) PAGE 1 Signed Report CBC W/AUTO [id number] 07:04:00* Test Item Value Reference Range Interpretation Comments WHITE BLOOD CELL (test code = WBC) 7.4 K/mm3 4.5-12.5 N RED BLOOD CELL (test code = RBC) 4.21 mill/mm3 3.7-5.2 N HEMOGLOBIN (test code = HGB) 12.2 gram/dL 11.5-15.5 N HEMATOCRIT (test code = HCT) 38.3 % 36.0-46.0 N MEAN CELL VOLUME (test code = MCV) 91.0 fL 80-98 N MEAN CELL HGB (test code = MCH) 29.0 picogram 27.0-33.0 N MEAN CELL HGB CONCETRATION (test code = MCHC) 31.9 gram/dL 33.0-36. 0 L RED CELL DISTRIBUTION WIDTH (test code = RDW) 14.0 % 11.6-16. 2 N RED CELL DISTRIBUTION WIDTH SD (test code = RDW-SD) 47.0 fL 37 .0-51.0 N PLATELET COUNT (test code = PLT) 278 K/mm3 150-450 N MEAN PLATELET VOLUME (test code = MPV) 9.6 fL 6.7-11.0 N NEUTROPHIL % (test code = NT%) 65.8 % 39.0-69.0 N IMMATURE GRANULOCYTE % (test code = IG%) 0.4 % 0.0-5.0 N LYMPHOCYTE % (test code = LY%) 23.1 % 25.0-55.0 L MONOCYTE % (test code = MO%) 8.0 % 0.0-10.0 N EOSINOPHIL % (test code = EO%) 1.9 % 0.0-5.0 N BASOPHIL % (test code = BA%) 0.8 % 0.0-1.0 N NUCLEATED RBC % (test code = NRBC%) 0.0 % 0-0 N NEUTROPHIL # (test code = NT#) 4.85 K/mm3 1.8-7.7 N IMMATURE GRANULOCYTE # (test code = IG#) 0.03 x10 3/uL 0-0.03 N LYMPHOCYTE # (test code = LY#) 1.70 K/mm3 1.0-5.0 N MONOCYTE # (test code = MO#) 0.59 K/mm3 0-0.8 N EOSINOPHIL # (test code = EO#) 0.14 K/mm3 0.0-0.5 N BASOPHIL # (test code = BA#) 0.06 K/mm3 0.0-0.2 N NUCLEATED RBC # (test code = NRBC#) 0.00 K/mm3 0.0-0.1 N CBC W/AUTO [id number] 06:58:00* Test Item Value Reference Range Interpretation Comments WHITE BLOOD CELL (test code = WBC) K/mm3 4.5-12.5 RED BLOOD CELL (test code = RBC) mill/mm3 3.7-5.2 HEMOGLOBIN (test code = HGB) 12.2 gram/dL 11.5-15.5 N HEMATOCRIT (test code = HCT) 38.3 % 36.0-46.0 N MEAN CELL VOLUME (test code = MCV) fL 80-98 MEAN CELL HGB (test code = MCH) picogram 27.0-33.0 MEAN CELL HGB CONCETRATION (test code = MCHC) gram/dL 33.0-36. 0 RED CELL DISTRIBUTION WIDTH (test code = RDW) % 11.6-16. 2 RED CELL DISTRIBUTION WIDTH SD (test code = RDW-SD) fL 37 .0-51.0 PLATELET COUNT (test code = PLT) K/mm3 150-450 MEAN PLATELET VOLUME (test code = MPV) fL 6.7-11.0 NEUTROPHIL % (test code = NT%) % 39.0-69.0 IMMATURE GRANULOCYTE % (test code = IG%) % 0.0-5.0 LYMPHOCYTE % (test code = LY%) % 25.0-55.0 MONOCYTE % (test code = MO%) % 0.0-10.0 EOSINOPHIL % (test code = EO%) % 0.0-5.0 BASOPHIL % (test code = BA%) % 0.0-1.0 NEUTROPHIL # (test code = NT#) K/mm3 1.8-7.7 LYMPHOCYTE # (test code = LY#) K/mm3 1.0-5.0 MONOCYTE # (test code = MO#) K/mm3 0-0.8 EOSINOPHIL # (test code = EO#) K/mm3 0.0-0.5 BASOPHIL # (test code = BA#) K/mm3 0.0-0.2 COMPREHENSIVE METABOLIC [id number] 06:47:00* Test Item Value Reference Range Interpretation Comments SODIUM (test code = NA) 138 mmol/L 136-145 N POTASSIUM (test code = K) 4.0 mmol/L 3.5-5.1 N CHLORIDE (test code = CL) 102.0 mmol/L 98-107 N CARBON DIOXIDE (test code = CO2) 29.0 mmol/L 21-32 N ANION GAP (test code = GAP) 11.0 10-20 N GLUCOSE (test code = GLU) 105 mg/dL 74-106 N BLOOD UREA NITROGEN (test code = BUN) 12 mg/dL 7-18 N GLOMERULAR FILTRATION RATE (test code = GFR) > 60 mL/min >=60 Estimated GFR by using Modified MDRD formula.Chronic kidney disease is defined as either kidney damageor GFR <60 mL/min/1.73 m2 for >3 months. CREATININE (test code = CREAT) 0.70 mg/dL 0.55-1.02 N Note change in reference range due to change in reagent. BUN/CREATININE RATIO (test code = BUN/CREA) 17.1 10-20 N TOTAL PROTEIN (test code = PROT) 7.2 gram/dL 6.4-8.2 N ALBUMIN (test code = ALB) 3.3 g/dL 3.4-5.0 L GLOBULIN (test code = GLOB) 3.9 gram/dL 2.7-4.2 N ALBUMIN/GLOBULIN RATIO (test code = A/G) 0.9 0.75-1.50 N CALCIUM (test code = CA) 8.5 mg/dL 8.5-10.1 N BILIRUBIN TOTAL (test code = BILT) 0.90 mg/dL 0.0-1.0 N SGOT/AST (test code = AST) 21 IUnit/L 15-37 N SGPT/ALT (test code = ALT) 25 IUnit/L 12-78 N ALKALINE PHOSPHATASE TOTAL (test code = ALKP) 107 IUnit/L 45-117 N Note change in reference range due to change in reagent. COMPREHENSIVE METABOLIC [id number] 06:37:00* Test Item Value Reference Range Interpretation Comments SODIUM (test code = NA) 138 mmol/L 136-145 N POTASSIUM (test code = K) 4.0 mmol/L 3.5-5.1 N CHLORIDE (test code = CL) 102.0 mmol/L 98-107 N CARBON DIOXIDE (test code = CO2) mmol/L 21-32 ANION GAP (test code = GAP) 10-20 GLUCOSE (test code = GLU) mg/dL 74-106 BLOOD UREA NITROGEN (test code = BUN) mg/dL 7-18 GLOMERULAR FILTRATION RATE (test code = GFR) mL/min >=60 CREATININE (test code = CREAT) mg/dL 0.55-1.02 BUN/CREATININE RATIO (test code = BUN/CREA) 10-20 TOTAL PROTEIN (test code = PROT) gram/dL 6.4-8.2 ALBUMIN (test code = ALB) g/dL 3.4-5.0 GLOBULIN (test code = GLOB) gram/dL 2.7-4.2 ALBUMIN/GLOBULIN RATIO (test code = A/G) 0.75-1.50 CALCIUM (test code = CA) mg/dL 8.5-10.1 BILIRUBIN TOTAL (test code = BILT) mg/dL 0.0-1.0 SGOT/AST (test code = AST) IUnit/L 15-37 SGPT/ALT (test code = ALT) IUnit/L 12-78 ALKALINE PHOSPHATASE TOTAL (test code = ALKP) IUnit/L 45-117 COMPREHENSIVE METABOLIC [id number] 12:46:00* Test Item Value Reference Range Interpretation Comments SODIUM (test code = NA) 136 mmol/L 136-145 N POTASSIUM (test code = K) 4.0 mmol/L 3.5-5.1 N CHLORIDE (test code = CL) 102.0 mmol/L 98-107 N CARBON DIOXIDE (test code = CO2) 27.0 mmol/L 21-32 N ANION GAP (test code = GAP) 11.0 10-20 N GLUCOSE (test code = GLU) 87 mg/dL 74-106 N BLOOD UREA NITROGEN (test code = BUN) 14 mg/dL 7-18 N GLOMERULAR FILTRATION RATE (test code = GFR) > 60 mL/min >=60 Estimated GFR by using Modified MDRD formula.Chronic kidney disease is defined as either kidney damageor GFR <60 mL/min/1.73 m2 for >3 months. CREATININE (test code = CREAT) 0.80 mg/dL 0.55-1.02 N Note change in reference range due to change in reagent. BUN/CREATININE RATIO (test code = BUN/CREA) 17.5 10-20 N TOTAL PROTEIN (test code = PROT) 7.5 gram/dL 6.4-8.2 N ALBUMIN (test code = ALB) 3.5 g/dL 3.4-5.0 N GLOBULIN (test code = GLOB) 4.0 gram/dL 2.7-4.2 N ALBUMIN/GLOBULIN RATIO (test code = A/G) 0.9 0.75-1.50 N CALCIUM (test code = CA) 8.6 mg/dL 8.5-10.1 N BILIRUBIN TOTAL (test code = BILT) 1.10 mg/dL 0.0-1.0 H SGOT/AST (test code = AST) 25 IUnit/L 15-37 N SGPT/ALT (test code = ALT) 30 IUnit/L 12-78 N ALKALINE PHOSPHATASE TOTAL (test code = ALKP) 111 IUnit/L 45-117 N Note change in reference range due to change in reagent. COMPREHENSIVE METABOLIC [id number] 12:38:00* Test Item Value Reference Range Interpretation Comments SODIUM (test code = NA) 136 mmol/L 136-145 N POTASSIUM (test code = K) 4.0 mmol/L 3.5-5.1 N CHLORIDE (test code = CL) 102.0 mmol/L 98-107 N CARBON DIOXIDE (test code = CO2) mmol/L 21-32 ANION GAP (test code = GAP) 10-20 GLUCOSE (test code = GLU) mg/dL 74-106 BLOOD UREA NITROGEN (test code = BUN) mg/dL 7-18 GLOMERULAR FILTRATION RATE (test code = GFR) mL/min >=60 CREATININE (test code = CREAT) mg/dL 0.55-1.02 BUN/CREATININE RATIO (test code = BUN/CREA) 10-20 TOTAL PROTEIN (test code = PROT) gram/dL 6.4-8.2 ALBUMIN (test code = ALB) g/dL 3.4-5.0 GLOBULIN (test code = GLOB) gram/dL 2.7-4.2 ALBUMIN/GLOBULIN RATIO (test code = A/G) 0.75-1.50 CALCIUM (test code = CA) mg/dL 8.5-10.1 BILIRUBIN TOTAL (test code = BILT) mg/dL 0.0-1.0 SGOT/AST (test code = AST) IUnit/L 15-37 SGPT/ALT (test code = ALT) IUnit/L 12-78 ALKALINE PHOSPHATASE TOTAL (test code = ALKP) IUnit/L 45-117 CBC W/AUTO [id number] 12:26:00* Test Item Value Reference Range Interpretation Comments WHITE BLOOD CELL (test code = WBC) 8.6 K/mm3 4.5-12.5 N RED BLOOD CELL (test code = RBC) 4.27 mill/mm3 3.7-5.2 N HEMOGLOBIN (test code = HGB) 12.5 gram/dL 11.5-15.5 N HEMATOCRIT (test code = HCT) 39.4 % 36.0-46.0 N MEAN CELL VOLUME (test code = MCV) 92.3 fL 80-98 N MEAN CELL HGB (test code = MCH) 29.3 picogram 27.0-33.0 N MEAN CELL HGB CONCETRATION (test code = MCHC) 31.7 gram/dL 33.0-36. 0 L RED CELL DISTRIBUTION WIDTH (test code = RDW) 13.9 % 11.6-16. 2 N RED CELL DISTRIBUTION WIDTH SD (test code = RDW-SD) 47.1 fL 37 .0-51.0 N PLATELET COUNT (test code = PLT) 298 K/mm3 150-450 N MEAN PLATELET VOLUME (test code = MPV) 9.4 fL 6.7-11.0 N NEUTROPHIL % (test code = NT%) 67.5 % 39.0-69.0 N IMMATURE GRANULOCYTE % (test code = IG%) 0.3 % 0.0-5.0 N LYMPHOCYTE % (test code = LY%) 22.0 % 25.0-55.0 L MONOCYTE % (test code = MO%) 7.8 % 0.0-10.0 N EOSINOPHIL % (test code = EO%) 1.6 % 0.0-5.0 N BASOPHIL % (test code = BA%) 0.8 % 0.0-1.0 N NUCLEATED RBC % (test code = NRBC%) 0.0 % 0-0 N NEUTROPHIL # (test code = NT#) 5.81 K/mm3 1.8-7.7 N IMMATURE GRANULOCYTE # (test code = IG#) 0.03 x10 3/uL 0-0.03 N LYMPHOCYTE # (test code = LY#) 1.90 K/mm3 1.0-5.0 N MONOCYTE # (test code = MO#) 0.67 K/mm3 0-0.8 N EOSINOPHIL # (test code = EO#) 0.14 K/mm3 0.0-0.5 N BASOPHIL # (test code = BA#) 0.07 K/mm3 0.0-0.2 N NUCLEATED RBC # (test code = NRBC#) 0.00 K/mm3 0.0-0.1 N MANUAL DIFF REQUIRED (test code = MDIFF) NO CBC W/AUTO [id number] 12:25:00* Test Item Value Reference Range Interpretation Comments WHITE BLOOD CELL (test code = WBC) K/mm3 4.5-12.5 RED BLOOD CELL (test code = RBC) mill/mm3 3.7-5.2 HEMOGLOBIN (test code = HGB) 12.5 gram/dL 11.5-15.5 N HEMATOCRIT (test code = HCT) 39.4 % 36.0-46.0 N MEAN CELL VOLUME (test code = MCV) fL 80-98 MEAN CELL HGB (test code = MCH) picogram 27.0-33.0 MEAN CELL HGB CONCETRATION (test code = MCHC) gram/dL 33.0-36. 0 RED CELL DISTRIBUTION WIDTH (test code = RDW) % 11.6-16. 2 RED CELL DISTRIBUTION WIDTH SD (test code = RDW-SD) fL 37 .0-51.0 PLATELET COUNT (test code = PLT) K/mm3 150-450 MEAN PLATELET VOLUME (test code = MPV) fL 6.7-11.0 NEUTROPHIL % (test code = NT%) % 39.0-69.0 IMMATURE GRANULOCYTE % (test code = IG%) % 0.0-5.0 LYMPHOCYTE % (test code = LY%) % 25.0-55.0 MONOCYTE % (test code = MO%) % 0.0-10.0 EOSINOPHIL % (test code = EO%) % 0.0-5.0 BASOPHIL % (test code = BA%) % 0.0-1.0 NEUTROPHIL # (test code = NT#) K/mm3 1.8-7.7 LYMPHOCYTE # (test code = LY#) K/mm3 1.0-5.0 MONOCYTE # (test code = MO#) K/mm3 0-0.8 EOSINOPHIL # (test code = EO#) K/mm3 0.0-0.5 BASOPHIL # (test code = BA#) K/mm3 0.0-0.2 [id number] 19:47:00* Test Item Value Reference Range Interpretation Comments TROPONIN-I (test code = TROPI) <0.015 ng/mL 0-0.045 N COMMENTS TO [employer]IDENTIAL [employer]: COLLECT 3 HOURS AFTER PREVIOUS [id number] 17:12:00* Test Item Value Reference Range Interpretation Comments TROPONIN-I (test code = TROPI) <0.015 ng/mL 0-0.045 N COMMENTS TO RESIDENTIAL [employer]ING CARPENTER: COLLECT 3 HOURS AFTER PREVIOUS SAMPLEBASIC METABOLIC [id number] 12:32:00* Test Item Value Reference Range Interpretation Comments SODIUM (test code = NA) 138 mmol/L 136-145 N POTASSIUM (test code = K) 3.8 mmol/L 3.5-5.1 N CHLORIDE (test code = CL) 102.0 mmol/L 98-107 N CARBON DIOXIDE (test code = CO2) 30.0 mmol/L 21-32 N ANION GAP (test code = GAP) 9.8 10-20 L GLUCOSE (test code = GLU) 104 mg/dL 74-106 N BLOOD UREA NITROGEN (test code = BUN) 17 mg/dL 7-18 N GLOMERULAR FILTRATION RATE (test code = GFR) 53 mL/min >=60 Estimated GFR by using Modified MDRD formula.Chronic kidney disease is defined as either kidney damageor GFR <60 mL/min/1.73 m2 for >3 months. CREATININE (test code = CREAT) 1.00 mg/dL 0.55-1.02 N Note change in reference range due to change in reagent. BUN/CREATININE RATIO (test code = BUN/CREA) 17.5 10-20 N CALCIUM (test code = CA) 8.5 mg/dL 8.5-10.1 N HEPATIC FUNCTION [id number] 12:32:00* Test Item Value Reference Range Interpretation Comments TOTAL PROTEIN (test code = PROT) 7.5 gram/dL 6.4-8.2 N ALBUMIN (test code = ALB) 3.5 g/dL 3.4-5.0 N GLOBULIN (test code = GLOB) 4.0 gram/dL 2.7-4.2 N ALBUMIN/GLOBULIN RATIO (test code = A/G) 0.9 0.75-1.50 N BILIRUBIN TOTAL (test code = BILT) 1.00 mg/dL 0.0-1.0 N BILIRUBIN DIRECT (test code = BILD) 0.21 mg/dL 0.0-0.20 H SGOT/AST (test code = AST) 24 IUnit/L 15-37 N SGPT/ALT (test code = ALT) 31 IUnit/L 12-78 N ALKALINE PHOSPHATASE TOTAL (test code = ALKP) 107 IUnit/L 45-117 N Note change in reference range due to change in reagent. [id number] 12:32:00* Test Item Value Reference Range Interpretation Comments LIPASE (test code = LIP) 169 U/L 73.0-393.0 N [id number] 12:32:00* Test Item Value Reference Range Interpretation Comments TROPONIN-I (test code = TROPI) <0.015 ng/mL 0-0.045 N CBC W/O [id number] 12:28:00* Test Item Value Reference Range Interpretation Comments WHITE BLOOD CELL (test code = WBC) 7.9 K/mm3 4.5-12.5 N RED BLOOD CELL (test code = RBC) 4.31 mill/mm3 3.7-5.2 N HEMOGLOBIN (test code = HGB) 12.6 gram/dL 11.5-15.5 N HEMATOCRIT (test code = HCT) 38.4 % 36.0-46.0 N MEAN CELL VOLUME (test code = MCV) 89.1 fL 80-98 N MEAN CELL HGB (test code = MCH) 29.2 picogram 27.0-33.0 N MEAN CELL HGB CONCETRATION (test code = MCHC) 32.8 gram/dL 33.0-36. 0 L RED CELL DISTRIBUTION WIDTH (test code = RDW) 13.8 % 11.6-16. 2 N PLATELET COUNT (test code = PLT) 301 K/mm3 150-450 N MEAN PLATELET VOLUME (test code = MPV) 9.7 fL 6.7-11.0 N BASIC METABOLIC [id number] 12:23:00* Test Item Value Reference Range Interpretation Comments SODIUM (test code = NA) 138 mmol/L 136-145 N POTASSIUM (test code = K) 3.8 mmol/L 3.5-5.1 N CHLORIDE (test code = CL) 102.0 mmol/L 98-107 N CARBON DIOXIDE (test code = CO2) mmol/L 21-32 ANION GAP (test code = GAP) 10-20 GLUCOSE (test code = GLU) mg/dL 74-106 BLOOD UREA NITROGEN (test code = BUN) mg/dL 7-18 GLOMERULAR FILTRATION RATE (test code = GFR) mL/min >=60 CREATININE (test code = CREAT) mg/dL 0.55-1.02 BUN/CREATININE RATIO (test code = BUN/CREA) 10-20 CALCIUM (test code = CA) mg/dL 8.5-10.1 HEPATIC FUNCTION [id number] 12:23:00* Test Item Value Reference Range Interpretation Comments TOTAL PROTEIN (test code = PROT) gram/dL 6.4-8.2 ALBUMIN (test code = ALB) g/dL 3.4-5.0 GLOBULIN (test code = GLOB) gram/dL 2.7-4.2 ALBUMIN/GLOBULIN RATIO (test code = A/G) 0.75-1.50 BILIRUBIN TOTAL (test code = BILT) mg/dL 0.0-1.0 BILIRUBIN DIRECT (test code = BILD) mg/dL 0.0-0.20 SGOT/AST (test code = AST) IUnit/L 15-37 SGPT/ALT (test code = ALT) IUnit/L 12-78 ALKALINE PHOSPHATASE TOTAL (test code = ALKP) IUnit/L 45-117 [id number] 12:23:00* Test Item Value Reference Range Interpretation Comments LIPASE (test code = LIP) U/L 73.0-393.0 [id number] 12:23:00* Test Item Value Reference Range Interpretation Comments TROPONIN-I (test code = TROPI) ng/mL 0-0.045 PROTHROMBIN [id number] 12:17:00* Test Item Value Reference Range Interpretation Comments PROTHROMBIN TIME PATIENT (test code = PTP) 12.0 seconds 9.0-14.0 N INTERNATIONAL NORMAL RATIO (test code = INR) 1.0 0.8-1.2 N The therapeutic range for oral anticoagulant therapy formost indications is an international normalized ratio (INR)of between 2.0 and 3.0. The recommended therapeutic INRrange for various clinical situations is listed below: Clinical Situation INR range Pulmonary e mbolism treatment (2.0-3.0)Venous thrombosis treatmentVenous thrombosis prophylaxis (high risk surgery)Prevention of systemic embolism from: Acute myocardial infarction Valvular heart disease Atrial fibrillation Mechanical prosthetic heart valves (2.5-3.5) IS PATIENT ON ANTICOAGULANTS? NTHROMBOPLASTIN TIME [id number] 12:17:00* Test Item Value Reference Range Interpretation Comments THROMBOPLASTIN TIME PARTIAL (test code = PTT) 28.8 seconds 25.0-36. 5 N IS PATIENT ON ANTICOAGULANTS? NTROPONIN I [id number] 12:16:00* Test Item Value Reference Range Interpretation Comments TROPONIN I RAPID (test code = TROPIRAP) 0.01 ng/mL <0.08 Please Note New Reference Range 0.00-0.079 ng/mL - Negative>or= 0.08 ng/mL - Positive The use of serial sampling and testing protocol is arecommended practice.An elevated troponin level alone is often not sufficient fordiagnosis of myocardial infarction. Troponin results obtained by different assays may vary.Evaluation of the extent of myocardial damage based onincrease of troponin would be valid only if similarmethodology is used. - XR CHEST 1 [id number] 12:08:00 FAX: Edelmira Cisneros MD [phone] [place]: St: REG Name: ALLEN AMIN [facility] : [birth year] Age/S: 83/F [address] [facility] Unit #: [id number] Loc: ISAIAH Shin [address] Phys: Edelmira Cisneros MD Acct: [id number] Dis Date: Status: REG ER PHONE #: [phone] Exam Date: 05/15/2019 1147 FAX #: [phone] Reason: CHEST PAIN EXAMS: CPT CODE: [id number] XR CHEST 1 V 67681 HISTORY: Chest pain. COMPARISON: December 14, 2017. No acute infiltrates, effusion or keila estion is noted. Mild cardiomegaly. IMPRESSION: No acute infiltrates, effusion or congestion. Electronical ly Signed by Erica Piper on 05/15/2019 at 1208 Rep orted and signed by: David Piper M.D. CC: Edelmira Cisneros MD Technologist: Juana Al RT(R) Trnscrd Date/Time/By: 05/15/2019 (5116) : By: [email or web address] Orig Print D/T: S: 05/15/2019 (5037) PAGE 1 Signed Report SCR MAMM BILATERAL MICHEL CAD [id number] 13:29:13 - SCR MAMM BILATERAL MICHEL CAD DIGITALBILATERAL DIGITAL SCREENING MAMMOGRAM 3D/2D WITH CAD: 05/13/2019CLINICAL: Asymptomatic. Digital breast tomosynthesis was performed in addition to routine CC and MLO views. Current mammographic images were evaluated by either a [employer] M-Vu or a [employer] Image[employer]ekkuncker CAD (computer aided detection system). Comparison is made to exams dated 08/08/2017 mammogram, 03/29/2016 mammogram, and 03/28/2015 mammogram - [facility]. The re are scattered fibroglandular tissues in both breasts. There are benign vascu lar calcifications in both breasts. No suspicious mass, architectural distortio n, malignant type calcification, or lymph node abnormality detected. Breast arc hitecture is stable compared to prior exams.IMPRESSION: BENIGNThere is no mammog raphic evidence of malignancy. Resume annual screening mammography in one year. Portillo Samano M.D. et/penrad:05/14/2019 13:29:13 Filling And Packing Supervisor: Glenis GONZALEZ, [facility] sent: BIRADS 1-2 Normal M ammogram BI-RADS: 2 BenignUrine [id number] 13:08:00* Test Item Value Reference Range Interpretation Comments Urine WBC (test code = 5821-4) 21-50 0-5 [facility] [id number] 13:08:00* Test Item Value Reference Range Interpretation Comments Urine RBC (test code = 52990-9) 6-10 0-5 [facility] Nfcoicot6297-55-70 13:08:00* Test Item Value Reference Range Interpretation Comments Urine Bacteria (test code = 53171-9) MANY NONE [facility] Epithelial Lvxjw9798-85-01 13:08:00 * Test Item Value Reference Range Interpretation Comments Urine Epithelial Cells (test code = 27328-8) FEW NONE [facility] CenterInfluenza Virus Types A,B Antigen 2019-04-12 13:01:00* Test Item Value Reference Range Interpretation Comments Influenza Virus Types A,B Antigen (test code = 10474-1) NEGATIVE NEGATIVE [facility] CenterB-Type Natriuretic Xkfudnx1601-12-57 12:55:00* Test Item Value Reference Range Interpretation Comments B-Type Natriuretic Peptide (test code = 65983-3) 41.3 0-100 [facility] Zseil5366-66-10 12:54:00* Test Item Value Reference Range Interpretation Comments Urine Color (test code = 5778-6) YELLOW YELLOW [facility] Svwdrxp7558-96-97 12:54:00* Test Item Value Reference Range Interpretation Comments Urine Clarity (test code = 47440-7) SL CLOUDY CLEAR [facility] Center[facility] Specific Betthdv6350-81-42 12:54:00 * Test Item Value Reference Range Interpretation Comments Urine Specific [employer] (test code = 5811-5) <=1.005 1.010-1.02 5 [facility] [id number] 12:54:00* Test Item Value Reference Range Interpretation Comments Urine pH (test code = 95593-9) 7 5-7 [facility] Leukocyte Racioudw6817-92-22 12:54:00* Test Item Value Reference Range Interpretation Comments Urine Leukocyte Esterase (test code = 74128-6) LARGE NEGATIV E [facility] Center[facility] Jnujniq3995-59-45 12:54:00* Test Item Value Reference Range Interpretation Comments Urine Nitrite (test code = 13085-6) POSITIVE NEGATIVE H [facility] Hmfehkr1833-44-84 12:54:00* Test Item Value Reference Range Interpretation Comments Urine Protein (test code = 34750-3) NEGATIVE NEGATIVE [facility] Center[facility] Glucose (UA)2019-04-12 12:54:00* Test Item Value Reference Range Interpretation Comments Urine Glucose (UA) (test code = 01531-4) NEGATIVE NEGATIVE [facility] Kdprkru1361-38-93 12:54:00* Test Item Value Reference Range Interpretation Comments Urine Ketones (test code = 51888-7) NEGATIVE NEGATIVE [facility] Center[facility] Lfcomvckpvkj3524-79-76 12:54:00* Test Item Value Reference Range Interpretation Comments Urine Urobilinogen (test code = 86518-4) 0.2 0.2-1 [facility] Qbdifqnjn7297-88-14 12:54:00* Test Item Value Reference Range Interpretation Comments Urine Bilirubin (test code = 1977-8) NEGATIVE NEGATIVE [facility] Pievi9374-27-96 12:54:00* Test Item Value Reference Range Interpretation Comments Urine Blood (test code = 83932-3) TRACE NEGATIVE H [facility] CenterCreatine Kinase [id number] 12:50:00* Test Item Value Reference Range Interpretation Comments Creatine Kinase MB (test code = 59269-5) 3.60 0-5.0 [facility] CenterTroponin [id number] 12:50:00* Test Item Value Reference Range Interpretation Comments Troponin I (test code = BKV5815) < 0.001 0-0.300 [facility] Mnkee5158-90-88 12:43:00* Test Item Value Reference Range Interpretation Comments Sodium Level (test code = 2951-2) 136 136-145 [facility] CenterPotassium Rxspw3907-13-88 12:43:00* Test Item Value Reference Range Interpretation Comments Potassium Level (test code = 2823-3) 3.8 3.5-5.1 [facility] CenterChloride Zftpm3464-06-95 12:43:00* Test Item Value Reference Range Interpretation Comments Chloride Level (test code = 2075-0) 102 98-107 [facility] CenterCarbon Dioxide Zidyb4334-16-60 12:43:00* Test Item Value Reference Range Interpretation Comments Carbon Dioxide Level (test code = 2028-9) 26 22-29 [facility] CenterAnion Qnk1174-01-62 12:43:00* Test Item Value Reference Range Interpretation Comments Anion Gap (test code = 61581-5) 11.8 8-16 [facility] CenterBlood Urea Cnezwtch1228-76-14 12:43:00* Test Item Value Reference Range Interpretation Comments Blood Urea Nitrogen (test code = 3094-0) 11 7-26 [facility] CenterCreatinine2019-11-17 12:43:00* Test Item Value Reference Range Interpretation Comments Creatinine (test code = 2160-0) 0.74 0.57-1.11 [facility] CenterBUN/Creatinine Pjwuu1217-79-53 12:43:00* Test Item Value Reference Range Interpretation Comments BUN/Creatinine Ratio (test code = 3097-3) 15 6- [facility] CenterEstimat Glomerular Filtration Rate 2019-04-12 12:43:00* Test Item Value Reference Range Interpretation Comments Estimat Glomerular Filtration Rate (test code = 219319390) > 60 >60 Ranges were taken from the National Kidney Disease Education Program and the [facility] Kid[facility] Foundation literature.Reference ranges:60 or greater: Tdimtk16-39 ( for 3 consecutive months): Chronic kidney disease 15 or less: Kidney failureNacogdoches Medical CenterGlucose Usncf4668-55-12 12:43:00* Test Item Value Reference Range Interpretation Comments Glucose Level (test code = RKH4981) 98 74-118 [facility] CenterCalcium Xvhqq0990-31-97 12:43:00* Test Item Value Reference Range Interpretation Comments Calcium Level (test code = 49640-5) 8.9 8.4-10.2 [facility] CenterMagnesium Upnai7957-98-40 12:43:00* Test Item Value Reference Range Interpretation Comments Magnesium Level (test code = 03336-1) 1.9 1.3-2.1 [facility] CenterTotal Beukqcgrl5650-40-78 12:43:00* Test Item Value Reference Range Interpretation Comments Total Bilirubin (test code = 1975-2) 1.1 0.2-1.2 [facility] CenterAspartate Amino Transf (AST/SGOT) 2019-04-12 12:43:00* Test Item Value Reference Range Interpretation Comments Aspartate Amino Transf (AST/SGOT) (test code = Aspartate Amino Transf (AST/SGOT)) 30 5-34 [facility] CenterAlanine Aminotransferase (ALT/SGPT) 2019-04-12 12:43:00* Test Item Value Reference Range Interpretation Comments Alanine Aminotransferase (ALT/SGPT) (test code = 1742-6) 25 0-55 [facility] CenterTotal Kntegdr0017-17-48 12:43:00* Test Item Value Reference Range Interpretation Comments Total Protein (test code = 2885-2) 6.8 6.5-8.1 [facility] CenterAlbumin2019-11-17 12:43:00* Test Item Value Reference Range Interpretation Comments Albumin (test code = 1751-7) 3.5 3.5-5.0 [facility] CenterGlobulin2019-11-17 12:43:00* Test Item Value Reference Range Interpretation Comments Globulin (test code = 34965-8) 3.3 2.3-3.5 [facility] CenterAlbumin/Globulin Myoao4502-93-75 12:43:00 * Test Item Value Reference Range Interpretation Comments Albumin/Globulin Ratio (test code = 1759-0) 1.1 0.8-2.0 [facility] CenterAlkaline Lbdywosnnia3356-11-83 12:43:00* Test Item Value Reference Range Interpretation Comments Alkaline Phosphatase (test code = 6768-6) 100 40-150 [facility] CenterCreatine Jonhrq2657-69-06 12:43:00* Test Item Value Reference Range Interpretation Comments Creatine Kinase (test code = 2157-6) 167 29-168 [facility] CenterProthrombin Xlts0288-00-29 12:39:00* Test Item Value Reference Range Interpretation Comments Prothrombin Time (test code = 5902-2) 12.8 11.9-14.5 [facility] CenterProthromb Time International Ratio 2019-04-12 12:39:00* Test Item Value Reference Range Interpretation Comments Prothromb Time International Ratio (test code = 6301-6) 0.92 Oral Anticoagulant Therapy INR Values:1. Low Intensity Therapy 1.5 - 2.02 . Moderate Intensity Therapy 2.0 - 3.03. High Intensity Therapy(1) 2.5 - 3. 54. High Intensity Therapy(2) 3.0 - 4.05. Panic Value INR > 5.0 [facility] CenterActivated Partial Thromboplast Time 2019-04-12 12:39:00* Test Item Value Reference Range Interpretation Comments Activated Partial Thromboplast Time (test code = 78471-4) 27.9 23.8-35.5 [facility] CenterWhite Blood Stjth6473-51-76 12:24:00* Test Item Value Reference Range Interpretation Comments White Blood Count (test code = 6690-2) 6.11 4.8-10.8 [facility] CenterRed Blood Jrikz2783-98-67 12:24:00* Test Item Value Reference Range Interpretation Comments Red Blood Count (test code = 789-8) 3.86 3.6-5.1 [facility] CenterHemoglobin2019-11-17 12:24:00* Test Item Value Reference Range Interpretation Comments Hemoglobin (test code = 17586-0) 11.4 12.0-16.0 L [facility] CenterHematocrit2019-11-17 12:24:00* Test Item Value Reference Range Interpretation Comments Hematocrit (test code = 4544-3) 34.4 34.2-44.1 [facility] CenterMean Corpuscular Kpbwhb6973-39-08 12:24:00* Test Item Value Reference Range Interpretation Comments Mean Corpuscular Volume (test code = 787-2) 89.1 81-99 [facility] CenterMean Corpuscular Vxcjnczuqx4112-14-74 12:24:00* Test Item Value Reference Range Interpretation Comments Mean Corpuscular Hemoglobin (test code = 785-6) 29.5 28-32 [facility] CenterMean Corpuscular Hemoglobin Concent 2019-04-12 12:24:00* Test Item Value Reference Range Interpretation Comments Mean Corpuscular Hemoglobin Concent (test code = 786-4) 33.1 31-35 [facility] CenterRed Cell Distribution Figio3445-57-84 12:24:00* Test Item Value Reference Range Interpretation Comments Red Cell Distribution Width (test code = 23061-7) 13.9 11.7 -14.4 [facility] CenterPlatelet Cncxa9859-68-55 12:24:00* Test Item Value Reference Range Interpretation Comments Platelet Count (test code = 777-3) 210 140-360 [facility] CenterNeutrophils (%) (Auto)2019-04-12 12:24:00 * Test Item Value Reference Range Interpretation Comments Neutrophils (%) (Auto) (test code = 04170-6) 69.9 38.7-80.0 [facility] CenterLymphocytes (%) (Auto)2019-04-12 12:24:00 * Test Item Value Reference Range Interpretation Comments Lymphocytes (%) (Auto) (test code = 736-9) 16.2 18.0-39.1 L [facility] CenterMonocytes (%) (Auto)2019-04-12 12:24:00* Test Item Value Reference Range Interpretation Comments Monocytes (%) (Auto) (test code = 5905-5) 9.2 4.4-11.3 [facility] CenterEosinophils (%) (Auto)2019-04-12 12:24:00 * Test Item Value Reference Range Interpretation Comments Eosinophils (%) (Auto) (test code = 713-8) 3.9 0.0-6.0 [facility] CenterBasophils (%) (Auto)2019-04-12 12:24:00* Test Item Value Reference Range Interpretation Comments Basophils (%) (Auto) (test code = 706-2) 0.5 0.0-1.0 [facility] CenterIM GRANULOCYTES %2019-04-12 12:24:00* Test Item Value Reference Range Interpretation Comments IM GRANULOCYTES % (test code = IM GRANULOCYTES %) 0.3 0.0- 1.0 [facility] CenterNeutrophils # (Auto)2019-04-12 12:24:00* Test Item Value Reference Range Interpretation Comments Neutrophils # (Auto) (test code = 751-8) 4.3 2.1-6.9 [facility] CenterLymphocytes # (Auto)2019-04-12 12:24:00* Test Item Value Reference Range Interpretation Comments Lymphocytes # (Auto) (test code = 44681-6) 1.0 1.0-3.2 [facility] CenterMonocytes # (Auto)2019-04-12 12:24:00* Test Item Value Reference Range Interpretation Comments Monocytes # (Auto) (test code = 742-7) 0.6 0.2-0.8 [facility] CenterEosinophils # (Auto)2019-04-12 12:24:00* Test Item Value Reference Range Interpretation Comments Eosinophils # (Auto) (test code = 711-2) 0.2 0.0-0.4 [facility] CenterBasophils # (Auto)2019-04-12 12:24:00* Test Item Value Reference Range Interpretation Comments Basophils # (Auto) (test code = 704-7) 0.0 0.0-0.1 [facility] CenterAbsolute Immature Granulocyte (auto 2019-04-12 12:24:00* Test Item Value Reference Range Interpretation Comments Absolute Immature Granulocyte (auto (deion t code = Absolute Immature Granulocyte (auto) 0.02 0-0.1 [facility] CenterCHEST 2 VDRYT8836-37-18 11:51:00 [facility] [address] [place] [address] Patient Name: ALLEN VALLADARES MR #: [id number] : 1935 Age/Sex: 83/F Req #: [id number] Adm Physician: Ordered by: EFREN TALLEY MD Report #: [id number] Location: ER Room/Bed: Procedure: [id number] DX/CH EST 2 VIEWS Exam Date: 04/12/19 Exam Time: 1140 REPORT STATUS: Signed EXAMINATION: PA and lateral views of the chest. COMPARISON: 10/09/2016 CLINICAL HI STORY: Cough DISCUSSION: Lines/tubes: None. Lungs: The yesica ngs are well inflated and clear. There is no evidence of pneumonia or pulmonar y edema. Pleura: There is no pleural effusion or pneumothorax. Heart and mediastinum: Tortuous thoracic aorta. Small hiatal hernia. Bones and s oft tissues: No acute bony abnormalities. Degenerative changes in the thorac ic spine IMPRESSION: No acute cardiopulmonary abnormalities. Signed by: Dr. Bud Hernandez M.D. on 04/12/2019 11:52 AM Dictated By: BUD HERNANDEZ MD 115 2 Transcribed By: TOM on 04/12/19 1152 COPY TO: EFREN TALLEY MD
== END 2020-02-13 18:02 | disposition home or self-care (01) ==
LOC: ER 15:01
DX: R33.9 Retention of urine, unspecified (principal); I10 Essential (primary) hypertension; E78.5 Hyperlipidemia, unspecified; I25.10 Atherosclerotic heart disease of native coronary artery without angina pectoris; Z85.828 Personal history of other malignant neoplasm of skin
CPT/HCPCS: 36415; 51702; 80053; 81001; 85025; 87086; 99283; J7030; 51700

== ENCOUNTER → 2020-04-13 | Day surgery (SDC) | payer MEDICARE ==
[2020-04-08 10:41] LABS: BASOPHILS # (AUTO) 0.1 (0.0-0.1); BASOPHILS % 0.9 % (0.0-1.0); EOSINOPHILS # (AUTO) 0.2 (0.0-0.4); EOSINOPHILS % 2.8 % (0.0-6.0); HEMATOCRIT 35.5 % (34.2-44.1); HEMOGLOBIN 11.4 g/dL (12.0-16.0); LYMPHOCYTES # (AUTO) 1.4 (1.0-3.2); LYMPHOCYTES % 25.4 % (18.0-39.1); MEAN CORPUSCULAR HEMOGLOBIN 29.4 pg (28-32); MEAN CORPUSCULAR HGB CONC 32.1 g/dL (31-35); MEAN CORPUSCULAR VOLUME 91.5 fL (81-99); MONOCYTES # (AUTO) 0.5 (0.2-0.8); MONOCYTES % 8.9 % (4.4-11.3); NEUTROPHILS # (AUTO) 3.2 (2.1-6.9); NEUTROPHILS % 61.1 % (38.7-80.0); PLATELET COUNT 241 x10e3/uL (140-360); RED BLOOD COUNT 3.88 x10e6/uL (3.6-5.1); RED CELL DISTRIBUTION WIDTH 12.8 % (11.7-14.4)
[2020-04-08 11:04] LABS: ANION GAP 13.5 mmol/L (8-16); CALCIUM 9.2 mg/dL (8.4-10.2); CREATININE, SERUM 0.9 mg/dL (0.57-1.11); POTASSIUM 4.5 mmol/L (3.5-5.1)
--- NOTE | 2020-04-08 11:51 | Diagnostic Imaging Report ---
EXAM: CHEST 2 VIEWS DATE: 04/08/2020 11:30 AM INDICATION: Preoperative evaluation COMPARISON: 04/12/2019 FINDINGS: The trachea is midline. The lungs are symmetrically expanded without evidence for large focal consolidation, pneumothorax, or significant pleural effusion. The cardiomediastinal silhouette is stable in appearance. The pulmonary vasculature is within normal limits. Stable tortuosity noted of the thoracic aorta. No acute osseous abnormality is identified. The surrounding soft tissues are unremarkable. IMPRESSION: No acute cardiopulmonary process identified. Signed by: Dr. Jaron Johnson MD on 04/08/2020 11:48 AM
[~2020-04-13] MED LIST changes: +AMLODIPINE BESY10 MG PO; +ARICEPT5 MG PO; +BUPIVACAINE HCL 0.5% INJ 30 ML VIAL INJ ONE; +CLINDAMYCIN 300MG 50 ML IV ONE; +DEXAMETHASONE SOD PHOS INJ 4 MG/ML VIAL ONE; +LEVOFLOXACIN 500MG/D5W 100ML 100 ML IV ONE; +LIDOCAINE 2%/ EPINEPHRINE 20ML MDV ONE; +LIDOCAINE HCL 2% JELLY 5 ML TUBE ONE; +LIDOCAINE HCL 2% LOCAL INJ 5 ML SDV VIAL INJ ONE; +LOSARTAN-HCTZ1 EAC2 PO; +MOBIC7.5 MG PO; +ONDANSETRON HCL INJ 2MG/ML 2ML 2 MG/ML VIAL ONE; +PRAMIPEXOLE D0.25 MG PO; +PROPOFOL IV EMULSION 10 MG/ML 20 ML VIAL ONE; +SEVOFLURANE INHAL SOLN 250 ML PEN BTL ONE
--- NOTE | 2020-04-13 10:53 | Diagnostic Imaging Report ---
OR Fluoroscopy: IMPRESSION: Fluoroscopy service provided in the OR. Interpretation not requested. Signed by: Maverick Méndez MD on 04/13/2020 10:49 AM
[2020-04-13 11:45] VITALS: BP 155/73
--- NOTE | 2020-04-14 01:21 | Operative Report ---
DATE OF PROCEDURE: 04/13/2020 SURGEON: Chidi Ureña MD PREOPERATIVE DIAGNOSIS: Refractory urge incontinence and malfunctioning InterStim. POSTOPERATIVE DIAGNOSIS: Refractory urge incontinence and malfunctioning InterStim. OPERATIVE PROCEDURES: 1. Replacement of InterStim neurostimulator. 2. Explantation of left InterStim electrode array. 3. Implantation of right InterStim electrode array. 4. Interpretation for needle guidance. 5. Supervision of fluoroscopy, no radiologist present. 6. Electronic analysis and complex programming. ANESTHESIA: General. COMPLICATIONS: None. CLINICAL SUMMARY: Racquel Jameson is an 84-year-old woman with an InterStim there. Her InterStim worked well until the battery ran out. The current lead seems to have migrated a bit anterior, and therefore, needs to be replaced as well. The patient is aware of the risks of bleeding, infection, injury to adjacent structures, need for additional procedures and she elected to proceed. PROCEDURE IN DETAIL: Informed consent was verified. Racquel Jameson was properly identified and taken to the operating room where general anesthesia was uneventfully begun. The patient was then carefully gently repositioned in a prone position with all pressure points carefully well padded. Her back and buttocks were prepared and draped in the usual sterile fashion. An incision was made overlying both the lead as well as the existing InterStim implant. We explanted the implant, divided the lead. We then identified the lead, and then dissected it down to the opening of the foramen. We then placed mild traction on it and it dislodged and was able to be removed intact. With fluoroscopic guidance, we introduced the needle into the foramen of S3. However, we did not get the response we wanted. We then placed a needle into the left foramen S3. We observed for bellowing as well as for plantar flexion of the great toe. When we got the responses, the needle and stylet were removed and a directional guidewire was placed. We then made an incision peripheral to the directional guide, and then placed the introducer sheath over the directional guide until it was midway through the sacrum. We then placed the electrode and guided it into proper position under fluoroscopic guidance. We tested the leads, and then gave adequate responses as noted above. We then utilizing continuous fluoroscopy, deployed and pulled out the sheath, thus deploying the lead tines into the sekou-sacral tissue. We retested the leads and they worked fine. Copious irrigations were performed. We then utilized the tunneling tool to take the lead and bring it to the pocket site. The lead was then cleansed of bodily fluids with sterile water and thoroughly dried. We then placed the lead into the InterStim generator header and the single set screw was tightened. Copious irrigation of all incisions was then performed and we placed the generator into its pocket. We interrogated the generator and all impedance parameters were within acceptable limits. We then closed all incisions in 2 layers utilizing absorbable sutures. Mastisol and Steri-Strips was applied to all 3 incisions. Bioclusive dressings were applied. The patient was then uneventfully reversed from anesthesia and taken to the recovery room in stable condition. Utilizing the clinician program, the patient was programmed to the lead of optimum sensation. Plans will be to follow the patient up in several weeks to evaluate her implant, ensure adequate function, perform impedance check and reprogram as needed. It should be noted that the patient's new InterStim system is MRI compatible. Chidi Ureña MD [place]/MODL /[id number] cc: Pranav Knutson MD
== END | disposition home or self-care (01) ==
LOC: OR 07:01
PROVIDERS: ATTEND Urology
DX: T85.113A Breakdown (mechanical) of implanted electronic neurostimulator, generator, initial encounter (principal); N39.41 Urge incontinence; I10 Essential (primary) hypertension; E78.5 Hyperlipidemia, unspecified; K21.9 Gastro-esophageal reflux disease without esophagitis; R00.1 Bradycardia, unspecified; I44.0 Atrioventricular block, first degree; M19.90 Unspecified osteoarthritis, unspecified site; F03.90 Unspecified dementia, unspecified severity, without behavioral disturbance, psychotic disturbance, mood disturbance, and anxiety; Y83.8 Other surgical procedures as the cause of abnormal reaction of the patient, or of later complication, without mention of misadventure at the time of the procedure; Z88.6 Allergy status to analgesic agent; Z88.0 Allergy status to penicillin; Z88.2 Allergy status to sulfonamides; Z88.8 Allergy status to other drugs, medicaments and biological substances; Z91.018 Allergy to other foods; Z01.810 Encounter for preprocedural cardiovascular examination; Z01.812 Encounter for preprocedural laboratory examination; Z01.818 Encounter for other preprocedural examination; Z20.828 Contact with and (suspected) exposure to other viral communicable diseases; Z85.828 Personal history of other malignant neoplasm of skin
CPT/HCPCS: 36415; 64581; 64590; 71046; 76000; 80048; 85025; 88300; 93005; 95972; C1776; C1787; J1100; J1956; J2001 ×3; J2405; J2704; L8679; U0002

== ENCOUNTER → 2020-05-18 | Outpatient (CLI) | payer MEDICARE ==
[~2020-05-18] MED LIST changes: -BUPIVACAINE HCL 0.5% INJ 30 ML VIAL INJ ONE; -CLINDAMYCIN 300MG 50 ML IV ONE; -DEXAMETHASONE SOD PHOS INJ 4 MG/ML VIAL ONE; -LEVOFLOXACIN 500MG/D5W 100ML 100 ML IV ONE; -LIDOCAINE 2%/ EPINEPHRINE 20ML MDV ONE; -LIDOCAINE HCL 2% JELLY 5 ML TUBE ONE; -LIDOCAINE HCL 2% LOCAL INJ 5 ML SDV VIAL INJ ONE; -ONDANSETRON HCL INJ 2MG/ML 2ML 2 MG/ML VIAL ONE; -PROPOFOL IV EMULSION 10 MG/ML 20 ML VIAL ONE; -SEVOFLURANE INHAL SOLN 250 ML PEN BTL ONE
== END ==
LOC: NM 08:13
PROVIDERS: ATTEND Internal Medicine Gastroenterology
DX: R11.0 Nausea (principal); K57.30 Diverticulosis of large intestine without perforation or abscess without bleeding; Z86.010 Personal history of colon polyps; R10.13 Epigastric pain; Z71.3 Dietary counseling and surveillance; I10 Essential (primary) hypertension; E66.3 Overweight
CPT/HCPCS: 78264; A9541

== ENCOUNTER 2020-05-26 07:45 | Observation (INO) | payer MEDICARE ==
[~2020-05-26] VITALS: Ht 167.6 cm; Wt 77.1 kg
[2020-05-26] MEDS ORDERED: ASPIRIN 81 MG CHEW TAB PO ONE (08:15)
[2020-05-26] MEDS ORDERED: NITROGLYCERIN 2% OINT 1 GM PKT TOP ONE (08:15)
[2020-05-26 08:27] LABS: BASOPHILS # (AUTO) 0.1 (0.0-0.1); BASOPHILS % 0.9 % (0.0-1.0); EOSINOPHILS # (AUTO) 0.2 (0.0-0.4); EOSINOPHILS % 3.6 % (0.0-6.0); HEMATOCRIT 37.4 % (34.2-44.1); LYMPHOCYTES # (AUTO) 1.4 (1.0-3.2); LYMPHOCYTES % 26.1 % (18.0-39.1); MEAN CORPUSCULAR HEMOGLOBIN 28.9 pg (28-32); MEAN CORPUSCULAR HGB CONC 32.1 g/dL (31-35); MEAN CORPUSCULAR VOLUME 90.1 fL (81-99); MONOCYTES # (AUTO) 0.4 (0.2-0.8); MONOCYTES % 7.7 % (4.4-11.3); NEUTROPHILS # (AUTO) 3.4 (2.1-6.9); NEUTROPHILS % 61.2 % (38.7-80.0); PLATELET COUNT 229 x10e3/uL (140-360); RED BLOOD COUNT 4.15 x10e6/uL (3.6-5.1)
[2020-05-26 08:53] LABS: INR 0.82; PARTIAL THROMBOPLASTIN TIME 26.2 seconds (23.8-35.5); PROTHROMBIN TIME 11.7 seconds (11.9-14.5)
[2020-05-26 09:01] LABS: ALANINE AMINOTRANSFERASE 36 IU/L (0-55); ALBUMIN 3.9 g/dL (3.5-5.0); ALBUMIN/GLOBULIN RATIO 1.2 (0.8-2.0); ALKALINE PHOSPHATASE 89 IU/L (40-150); ANION GAP 13.2 mmol/L (8-16); BLOOD UREA NITROGEN 14 mg/dL (7-26); BUN/CREATININE RATIO 18 (6-25); CALCIUM 8.6 mg/dL (8.4-10.2); CARBON DIOXIDE 27 mmol/L (22-29); CHLORIDE 102 mmol/L (98-107); CREATINE KINASE 154 IU/L (29-168); CREATININE, SERUM 0.77 mg/dL (0.57-1.11); EST GLOMERULAR FILTRATION RATE > 60 ML/MIN (60-); GLUCOSE 107 mg/dL (74-118); POTASSIUM 4.2 mmol/L (3.5-5.1); SODIUM 138 mmol/L (136-145)
[2020-05-26] MEDS ORDERED: ONDANSETRON HCL INJ 2MG/ML 2ML 2 MG/ML VIAL IV PRN ×2 (09:45→12:00)
[2020-05-26] MEDS ORDERED: NITROGLYCERIN 0.4 MG SUBL SL PRN (09:45)
[2020-05-26] MEDS ORDERED: PROPRANOLOL HCL80 MG PO (10:07)
[2020-05-26] MEDS ORDERED: DOCUSATE SODIUM 100 MG CAP PO PRN (12:00)
[2020-05-26] MEDS ORDERED: ACETAMINOPHEN 325 MG TAB PO PRN (12:00)
[2020-05-26 12:15] LABS: CHOL/HDL RATIO 3.2 (3.0-3.6)
[2020-05-26 14:45] VITALS: BP 151/61
[2020-05-26] MEDS: DONEPEZIL HCL 5 MG TAB PO SCH (16:27)
[2020-05-26] MEDS: HYDRALAZINE HCL 25 MG TAB PO SCH ×2 (16:27→21:00)
[2020-05-26 16:38] LABS: CREATINE KINASE MB 2.6 ng/mL (0-5.0)
[2020-05-26 20:00] VITALS: BP 117/47
[2020-05-26 21:00] VITALS: BP 117/50
[2020-05-26] MEDS ORDERED: SIMVASTATIN 20 MG TAB PO SCH (21:00)
[2020-05-26] MEDS ORDERED: PRAMIPEXOLE DIHYDROCHLORIDE 0.25 MG TAB PO SCH (21:00)
[2020-05-27] VITALS: BP 136/50
[2020-05-27 00:20] LABS: CREATINE KINASE MB 2.3 ng/mL (0-5.0)
[2020-05-27] MEDS ORDERED: ZOLPIDEM TARTRATE 5 MG TAB PO PRN (01:30)
[2020-05-27 04:00] VITALS: BP 156/63
[2020-05-27 05:53] LABS: BASOPHILS % 0.8 % (0.0-1.0); EOSINOPHILS # (AUTO) 0.2 (0.0-0.4); EOSINOPHILS % 2.9 % (0.0-6.0); HEMATOCRIT 33.5 % (34.2-44.1); HEMOGLOBIN 10.7 g/dL (12.0-16.0); LYMPHOCYTES # (AUTO) 1.4 (1.0-3.2); LYMPHOCYTES % 26.1 % (18.0-39.1); MEAN CORPUSCULAR HEMOGLOBIN 29.2 pg (28-32); MEAN CORPUSCULAR HGB CONC 31.9 g/dL (31-35); MEAN CORPUSCULAR VOLUME 91.5 fL (81-99); MONOCYTES # (AUTO) 0.5 (0.2-0.8); MONOCYTES % 8.8 % (4.4-11.3); NEUTROPHILS # (AUTO) 3.2 (2.1-6.9); NEUTROPHILS % 60.6 % (38.7-80.0); PLATELET COUNT 206 x10e3/uL (140-360); RED BLOOD COUNT 3.66 x10e6/uL (3.6-5.1)
[2020-05-27 06:22] LABS: ALANINE AMINOTRANSFERASE 28 IU/L (0-55); ALBUMIN 3.1 g/dL (3.5-5.0); ALBUMIN/GLOBULIN RATIO 1.1 (0.8-2.0); ALKALINE PHOSPHATASE 80 IU/L (40-150); ANION GAP 10.8 mmol/L (8-16); BLOOD UREA NITROGEN 13 mg/dL (7-26); BUN/CREATININE RATIO 18 (6-25); CALCIUM 8.2 mg/dL (8.4-10.2); CARBON DIOXIDE 25 mmol/L (22-29); CHLORIDE 106 mmol/L (98-107); CHOL/HDL RATIO 3.4 (3.0-3.6); CHOLESTEROL 167 MD/DL (0-199); CREATININE, SERUM 0.71 mg/dL (0.57-1.11); EST GLOMERULAR FILTRATION RATE > 60 ML/MIN (60-); GLUCOSE 95 mg/dL (74-118); HDL CHOLESTEROL 49 MG/DL (40-60); POTASSIUM 3.8 mmol/L (3.5-5.1); SODIUM 138 mmol/L (136-145)
[2020-05-27 06:58] LABS: LDL CHOLESTEROL 98 MG/DL (60-130); TRIGLYCERIDES 98 MG/DL (0-149)
[2020-05-27 07:12] LABS: CREATINE KINASE MB 2.2 ng/mL (0-5.0)
[2020-05-27] MEDS ORDERED: HYDRALAZINE HCL25 MG PO (07:45)
[2020-05-27] MEDS: DONEPEZIL HCL 5 MG TAB PO SCH (08:44)
[2020-05-27] MEDS: HYDRALAZINE HCL 25 MG TAB PO SCH ×2 (08:44→14:29)
[2020-05-27 08:49] VITALS: BP 181/76
[2020-05-27] MEDS ORDERED: ASPIRIN 81 MG ENTERIC COATED PO SCH (09:00)
[2020-05-27] MEDS ORDERED: NON-FORMULARY MEDICATION (Lovastatin 10 MG) PO SCH (09:00)
[2020-05-27] MEDS ORDERED: PANTOPRAZOLE SOD 40 MG TABEC PO SCH (09:00)
[2020-05-27 12:19] VITALS: BP 147/87
[2020-05-27 15:45] VITALS: BP 149/65
== END 2020-05-27 16:20 | disposition home or self-care (01) ==
LOC: ER 08:07 → ERHOLD 09:44 → MED/SURG 14:45
PROVIDERS: ADMIT Internal Medicine; ATTEND Internal Medicine
DX: R07.9 Chest pain, unspecified (principal); R00.1 Bradycardia, unspecified; E78.5 Hyperlipidemia, unspecified; Z20.828 Contact with and (suspected) exposure to other viral communicable diseases; I11.9 Hypertensive heart disease without heart failure; I25.10 Atherosclerotic heart disease of native coronary artery without angina pectoris; F03.90 Unspecified dementia, unspecified severity, without behavioral disturbance, psychotic disturbance, mood disturbance, and anxiety
CPT/HCPCS: 36415 ×2; 71045; 80053 ×2; 80061 ×2; 82550 ×2; 82553 ×2; 83735; 83880; 84484 ×2; 85025 ×2; 85610; 85730; 93005; 93306; 97161; G0378 ×2; S0164; U0002

== ENCOUNTER 2020-05-31 16:40 | Observation (INO) | payer MEDICARE ==
[~2020-05-31] VITALS: Ht 320 cm; Wt 77.1 kg
[~2020-05-31 16:40] MED LIST changes: +HYDRALAZINE HCL25 MG PO; +PROPRANOLOL HCL80 MG PO
[2020-05-31] MEDS ORDERED: ASPIRIN 81 MG CHEW TAB PO ONE (17:00)
[2020-05-31 17:02] LABS: BASOPHILS # (AUTO) 0.1 (0.0-0.1); BASOPHILS % 0.6 % (0.0-1.0); EOSINOPHILS % 0.5 % (0.0-6.0); HEMATOCRIT 36.3 % (34.2-44.1); HEMOGLOBIN 11.4 g/dL (12.0-16.0); LYMPHOCYTES # (AUTO) 1.1 (1.0-3.2); LYMPHOCYTES % 14.7 % (18.0-39.1); MEAN CORPUSCULAR HGB CONC 31.4 g/dL (31-35); MEAN CORPUSCULAR VOLUME 92.4 fL (81-99); MONOCYTES # (AUTO) 0.4 (0.2-0.8); MONOCYTES % 5.5 % (4.4-11.3); NEUTROPHILS % 78.2 % (38.7-80.0); PLATELET COUNT 248 x10e3/uL (140-360); RED BLOOD COUNT 3.93 x10e6/uL (3.6-5.1); RED CELL DISTRIBUTION WIDTH 13.8 % (11.7-14.4)
[2020-05-31 17:21] LABS: ALBUMIN 3.7 g/dL (3.5-5.0); ALBUMIN/GLOBULIN RATIO 1.2 (0.8-2.0); ANION GAP 12.8 mmol/L (8-16); CALCIUM 8.5 mg/dL (8.4-10.2); CREATININE, SERUM 0.97 mg/dL (0.57-1.11); POTASSIUM 3.8 mmol/L (3.5-5.1)
[2020-05-31 17:28] LABS: CREATINE KINASE MB 3.1 ng/mL (0-5.0)
[2020-05-31 23:00] VITALS: BP 154/67
[2020-05-31 23:30] VITALS: BP_SYST 131; BP_SYST 154; BP_DIAS 51; BP_DIAS 67
[2020-05-31] MEDS ORDERED: OXYBUTYNIN CHLO10 MG PO (23:55)
[2020-06-01 01:43] LABS: CREATINE KINASE MB 2.6 ng/mL (0-5.0)
[2020-06-01 04:00] VITALS: BP 154/55
[2020-06-01 06:56] LABS: BASOPHILS # (AUTO) 0.1 (0.0-0.1); EOSINOPHILS # (AUTO) 0.1 (0.0-0.4); EOSINOPHILS % 2.7 % (0.0-6.0); HEMATOCRIT 33.6 % (34.2-44.1); HEMOGLOBIN 10.4 g/dL (12.0-16.0); LYMPHOCYTES # (AUTO) 1.5 (1.0-3.2); LYMPHOCYTES % 29.9 % (18.0-39.1); MEAN CORPUSCULAR HEMOGLOBIN 28.7 pg (28-32); MEAN CORPUSCULAR VOLUME 92.6 fL (81-99); MONOCYTES # (AUTO) 0.5 (0.2-0.8); MONOCYTES % 9.4 % (4.4-11.3); NEUTROPHILS # (AUTO) 2.9 (2.1-6.9); NEUTROPHILS % 56.6 % (38.7-80.0); PLATELET COUNT 230 x10e3/uL (140-360); RED BLOOD COUNT 3.63 x10e6/uL (3.6-5.1); RED CELL DISTRIBUTION WIDTH 13.7 % (11.7-14.4)
[2020-06-01 07:36] LABS: ANION GAP 10.3 mmol/L (8-16); BLOOD UREA NITROGEN 24 mg/dL (7-26); BUN/CREATININE RATIO 29 (6-25); CALCIUM 8.1 mg/dL (8.4-10.2); CARBON DIOXIDE 27 mmol/L (22-29); CHLORIDE 107 mmol/L (98-107); CREATININE, SERUM 0.82 mg/dL (0.57-1.11); EST GLOMERULAR FILTRATION RATE > 60 ML/MIN (60-); GLUCOSE 86 mg/dL (74-118); POTASSIUM 4.3 mmol/L (3.5-5.1); SODIUM 140 mmol/L (136-145)
[2020-06-01 08:29] VITALS: BP 154/55
[2020-06-01 09:44] VITALS: BP 156/71
[2020-06-01] MEDS ORDERED: ZOLPIDEM TARTRATE 5 MG TAB PO PRN (10:15)
[2020-06-01] MEDS ORDERED: DOCUSATE SODIUM 100 MG CAP PO PRN (10:15)
[2020-06-01] MEDS ORDERED: ONDANSETRON HCL INJ 2MG/ML 2ML 2 MG/ML VIAL IV PRN (10:15)
[2020-06-01] MEDS ORDERED: ACETAMINOPHEN 325 MG TAB PO PRN (10:15)
[2020-06-01] MEDS ORDERED: MOBIC7.5 MG PO (10:19)
[2020-06-01] MEDS ORDERED: ALPRAZOLAM0.25 M1 PO (10:34)
[2020-06-01 10:46] LABS: CREATINE KINASE MB 2.6 ng/mL (0-5.0)
[2020-06-01] MEDS ORDERED: ASPIRIN 81 MG CHEW TAB PO SCH (11:00)
[2020-06-01] MEDS ORDERED: OXYBUTYNIN CHLORIDE XL 5 MG TAB PO SCH (11:00)
[2020-06-01] MEDS ORDERED: PANTOPRAZOLE SOD 40 MG TABEC PO SCH (11:00)
[2020-06-01] MEDS ORDERED: MELOXICAM 7.5 MG TAB PO SCH (11:00)
[2020-06-01 12:20] VITALS: BP 154/59
[2020-06-01] MEDS ORDERED: DONEPEZIL HCL 5 MG TAB PO SCH (17:00)
[2020-06-01] MEDS ORDERED: PRAMIPEXOLE DIHYDROCHLORIDE 0.25 MG TAB PO SCH (17:00)
[2020-06-01] MEDS ORDERED: ENOXAPARIN SOD INJ 40 MG/0.4 ML SYR SC SCH (17:00)
[2020-06-01] MEDS ORDERED: PRAVASTATIN 20 MG TAB PO SCH (21:00)
[2020-06-02] MEDS ORDERED: HYDROCHLOROTHIAZIDE 25 MG TAB PO SCH (09:00)
[2020-06-02] MEDS ORDERED: MELOXICAM 7.5 MG TAB PO SCH (09:00)
[2020-06-02] MEDS ORDERED: LOSARTAN POTASSIUM 100 MG TAB PO SCH (09:00)
== END 2020-06-01 14:03 | disposition home or self-care (01) ==
LOC: ER 16:44 → ERHOLD 18:49 → MED/SURG3 22:53
PROVIDERS: ADMIT Internal Medicine; ATTEND Internal Medicine
DX: R07.89 Other chest pain (principal); I10 Essential (primary) hypertension; E78.5 Hyperlipidemia, unspecified; Z20.822 Contact with and (suspected) exposure to COVID-19; I45.10 Unspecified right bundle-branch block; I44.0 Atrioventricular block, first degree
CPT/HCPCS: 36415 ×2; 71045; 80048; 80053; 82550 ×2; 82553 ×2; 82948; 84484 ×2; 85025 ×2; 93005; 99284; G0378 ×2; S0164; U0002

== ENCOUNTER → 2020-06-10 | Outpatient (CLI) | payer MEDICARE ==
[~2020-06-10] MED LIST changes: +ALPRAZOLAM0.25 M1 PO; +OXYBUTYNIN CHLO10 MG PO; +REGADENOSON 0.4 MG/5 ML SYR IV ONE
== END ==
LOC: NM 10:22
PROVIDERS: ATTEND Internal Medicine Interventional Cardiology
DX: I25.10 Atherosclerotic heart disease of native coronary artery without angina pectoris (principal)
CPT/HCPCS: 78452; 93017; A9502; J2785

== ENCOUNTER 2020-07-03 08:51 | Emergency (ER) | payer MEDICARE ==
[~2020-07-03] VITALS: Ht 320 cm; Wt 77.1 kg
[~2020-07-03 08:51] MED LIST changes: -REGADENOSON 0.4 MG/5 ML SYR IV ONE
[2020-07-03] MEDS ORDERED: PANTOPRAZOLE 40 MG 10ML VIAL IV STA (09:00)
[2020-07-03] MEDS ORDERED: SODIUM CHLORIDE 0.9% 1000ML 1,000 ML IV STA (09:00)
[2020-07-03 09:10] LABS: BASOPHILS # (AUTO) 0.1 (0.0-0.1); BASOPHILS % 0.8 % (0.0-1.0); EOSINOPHILS # (AUTO) 0.1 (0.0-0.4); EOSINOPHILS % 2.1 % (0.0-6.0); HEMOGLOBIN 11.7 g/dL (12.0-16.0); LYMPHOCYTES # (AUTO) 1.7 (1.0-3.2); LYMPHOCYTES % 27.7 % (18.0-39.1); MEAN CORPUSCULAR HEMOGLOBIN 29.3 pg (28-32); MEAN CORPUSCULAR HGB CONC 31.6 g/dL (31-35); MEAN CORPUSCULAR VOLUME 92.5 fL (81-99); MONOCYTES # (AUTO) 0.5 (0.2-0.8); MONOCYTES % 8.1 % (4.4-11.3); NEUTROPHILS # (AUTO) 3.8 (2.1-6.9); PLATELET COUNT 257 x10e3/uL (140-360); RED CELL DISTRIBUTION WIDTH 14.6 % (11.7-14.4)
[2020-07-03 09:23] LABS: INR 0.86; PROTHROMBIN TIME 12.2 seconds (11.9-14.5)
[2020-07-03 09:24] LABS: PARTIAL THROMBOPLASTIN TIME 28.9 seconds (23.8-35.5)
[2020-07-03 09:32] LABS: ALANINE AMINOTRANSFERASE 30 IU/L (0-55); ALBUMIN 3.9 g/dL (3.5-5.0); ALBUMIN/GLOBULIN RATIO 1.1 (0.8-2.0); ALKALINE PHOSPHATASE 91 IU/L (40-150); BLOOD UREA NITROGEN 23 mg/dL (7-26); BUN/CREATININE RATIO 29 (6-25); CALCIUM 8.7 mg/dL (8.4-10.2); CARBON DIOXIDE 24 mmol/L (22-29); CHLORIDE 107 mmol/L (98-107); CREATINE KINASE 201 IU/L (29-168); EST GLOMERULAR FILTRATION RATE > 60 ML/MIN (60-); GLUCOSE 103 mg/dL (74-118); SODIUM 140 mmol/L (136-145)
[2020-07-03] MEDS ORDERED: IOPAMIDOL 370 MG/ML 200 ML INFUS..BTL INJ ONE (09:52)
[2020-07-03] MEDS ORDERED: SODIUM CHLORIDE 0.9% 50ML 50 ML ONE (09:52)
[2020-07-03 09:54] LABS: AMYLASE 59 U/L (25-125)
[2020-07-03 10:15] LABS: LIPASE 35 U/L (8-78)
[2020-07-03 10:34] LABS: OCCULT BLOOD STOOL NEGATIVE (NEGATIVE)
[2020-07-03 14:38] LABS: C DIFFICILE TOXIN A&B AMP PROB NEGATIVE (NEGATIVE)
== END 2020-07-03 12:47 | disposition home or self-care (01) ==
LOC: ER 08:55
DX: K29.70 Gastritis, unspecified, without bleeding (principal); R10.13 Epigastric pain; K44.9 Diaphragmatic hernia without obstruction or gangrene; R94.31 Abnormal electrocardiogram [ECG] [EKG]; I10 Essential (primary) hypertension; E78.5 Hyperlipidemia, unspecified; I25.10 Atherosclerotic heart disease of native coronary artery without angina pectoris; Z11.52 Encounter for screening for COVID-19; Z85.828 Personal history of other malignant neoplasm of skin
CPT/HCPCS: 36415; 71045; 74177; 80053; 82150; 82270; 82550; 82553; 83690; 84484; 85025; 85610; 85730; 86850; 86900; 87493; 93005; 99284; C9113; J7030; Q9967; U0002

== ENCOUNTER → 2020-07-20 | Day surgery (SDC) | payer MEDICARE ==
[~2020-07-20] MED LIST changes: +CALCET TABLET1 EACH PO; +FIBER TABS625 MG PO; +ISOSORBIDE MONO30 MG PO; +LIDOCAINE HCL 2% LOCAL INJ 5 ML SDV VIAL INJ ONE; +PROPOFOL IV EMULSION 10 MG/ML 20 ML VIAL ONE
[2020-07-20 13:50] VITALS: BP 144/72
== END | disposition home or self-care (01) ==
LOC: OR 09:55
PROVIDERS: ATTEND Internal Medicine Gastroenterology
DX: K29.00 Acute gastritis without bleeding (principal); K31.7 Polyp of stomach and duodenum; K29.50 Unspecified chronic gastritis without bleeding; K22.8 Other specified diseases of esophagus; K21.9 Gastro-esophageal reflux disease without esophagitis; K44.9 Diaphragmatic hernia without obstruction or gangrene; K57.30 Diverticulosis of large intestine without perforation or abscess without bleeding; Z86.010 Personal history of colon polyps; Z71.3 Dietary counseling and surveillance; I48.92 Unspecified atrial flutter; I10 Essential (primary) hypertension; E66.3 Overweight; Z88.6 Allergy status to analgesic agent; Z88.1 Allergy status to other antibiotic agents; Z88.0 Allergy status to penicillin; Z88.2 Allergy status to sulfonamides; Z88.8 Allergy status to other drugs, medicaments and biological substances; Z68.28 Body mass index [BMI] 28.0-28.9, adult; Z01.812 Encounter for preprocedural laboratory examination; Z20.822 Contact with and (suspected) exposure to COVID-19; Z79.82 Long term (current) use of aspirin
CPT/HCPCS: 43239; 88305; J2001; J2704; U0002; 88312

== ENCOUNTER 2020-11-06 08:34 | Observation (INO) | payer MEDICARE ==
[~2020-11-06] VITALS: Ht 167.6 cm; Wt 76.7 kg
[~2020-11-06 08:34] MED LIST changes: -LIDOCAINE HCL 2% LOCAL INJ 5 ML SDV VIAL INJ ONE; -PROPOFOL IV EMULSION 10 MG/ML 20 ML VIAL ONE
[2020-11-06] MEDS ORDERED: ASPIRIN 81 MG CHEW TAB PO ONE (09:00)
[2020-11-06] MEDS ORDERED: SODIUM CHLORIDE 0.9% 500ML 500 ML IV ONE (09:00)
[2020-11-06 09:23] LABS: BASOPHILS # (AUTO) 0.1 (0.0-0.1); BASOPHILS % 1.1 % (0.0-1.0); EOSINOPHILS # (AUTO) 0.1 (0.0-0.4); EOSINOPHILS % 1.9 % (0.0-6.0); HEMATOCRIT 33.1 % (34.2-44.1); HEMOGLOBIN 10.3 g/dL (12.0-16.0); LYMPHOCYTES # (AUTO) 1.4 (1.0-3.2); LYMPHOCYTES % 25.9 % (18.0-39.1); MEAN CORPUSCULAR HEMOGLOBIN 27.7 pg (28-32); MEAN CORPUSCULAR HGB CONC 31.1 g/dL (31-35); MONOCYTES # (AUTO) 0.4 (0.2-0.8); MONOCYTES % 7.8 % (4.4-11.3); NEUTROPHILS # (AUTO) 3.3 (2.1-6.9); NEUTROPHILS % 62.5 % (38.7-80.0); PLATELET COUNT 207 x10e3/uL (140-360); RED BLOOD COUNT 3.72 x10e6/uL (3.6-5.1); RED CELL DISTRIBUTION WIDTH 14.6 % (11.7-14.4)
[2020-11-06 09:40] LABS: ALANINE AMINOTRANSFERASE 18 IU/L (0-55); ALBUMIN 3.6 g/dL (3.5-5.0); ALBUMIN/GLOBULIN RATIO 1.1 (0.8-2.0); ALKALINE PHOSPHATASE 84 IU/L (40-150); ANION GAP 12.6 mmol/L (8-16); BLOOD UREA NITROGEN 19 mg/dL (7-26); BUN/CREATININE RATIO 22 (6-25); CALCIUM 8.3 mg/dL (8.4-10.2); CARBON DIOXIDE 26 mmol/L (22-29); CHLORIDE 105 mmol/L (98-107); CREATINE KINASE 143 IU/L (29-168); CREATININE, SERUM 0.86 mg/dL (0.57-1.11); EST GLOMERULAR FILTRATION RATE > 60 ML/MIN (60-); GLUCOSE 171 mg/dL (74-118); POTASSIUM 3.6 mmol/L (3.5-5.1); SODIUM 140 mmol/L (136-145)
[2020-11-06 09:45] LABS: CLARITY,URINE CLEAR (CLEAR); COLOR,URINE YELLOW (YELLOW)
[2020-11-06 09:46] LABS: KETONES,URINE NEGATIVE (NEGATIVE); LEUKOCYTE ESTERASE ,URINE NEGATIVE (NEGATIVE); NITRITE,URINE NEGATIVE (NEGATIVE); PROTEIN,URINE DIPSTICK 2+ (NEGATIVE); URINE UROBILINOGEN 0.2 mg/dL (0.2 - 1)
[2020-11-06 09:55] LABS: BACTERIA,URINE RARE /HPF; EPITHELIAL CELLS,URINE FEW /LPF; RBC,URINE 0-5 /HPF (0-5); WBC,URINE (MAN) 0-5 /HPF (0-5)
[2020-11-06] MEDS ORDERED: ONDANSETRON HCL INJ 2MG/ML 2ML 2 MG/ML VIAL IV PRN (10:15)
[2020-11-06] MEDS ORDERED: AMLODIPINE BES2.5 MG PO (10:37)
[2020-11-06] MEDS ORDERED: HYDRALAZINE HCL50 MG PO (10:37)
[2020-11-06] MEDS ORDERED: OXYBUTYNIN CHLO10 MG PO (10:37)
[2020-11-06] MEDS: FAMOTIDINE 20 MG/2 ML VIAL IV SCH ×2 (10:57→21:01)
[2020-11-06] MEDS ORDERED: DOCUSATE SODIUM 100 MG CAP PO PRN (11:00)
[2020-11-06 13:46] VITALS: BP 153/53
[2020-11-06 13:47] VITALS: BP 153/53
[2020-11-06 13:52] VITALS: BP 153/53
[2020-11-06] MEDS: HYDRALAZINE HCL 25 MG TAB PO SCH ×2 (14:46→21:02)
[2020-11-06 15:53] VITALS: BP 132/48
[2020-11-06] MEDS: PRAMIPEXOLE DIHYDROCHLORIDE 0.25 MG TAB PO SCH (17:17)
[2020-11-06] MEDS: ENOXAPARIN SOD INJ 40 MG/0.4 ML SYR SC SCH (17:17)
[2020-11-06] MEDS: DONEPEZIL HCL 5 MG TAB PO SCH (17:17)
[2020-11-06 18:21] LABS: CREATINE KINASE MB 3.2 ng/mL (0-5.0)
[2020-11-06 20:00] VITALS: BP 152/59
[2020-11-06 21:00] VITALS: BP 152/59
[2020-11-06] MEDS ORDERED: ZOLPIDEM TARTRATE 5 MG TAB PO PRN (21:00)
[2020-11-06] MEDS: SIMVASTATIN 20 MG TAB PO SCH (21:01)
[2020-11-06 23:55] LABS: CREATINE KINASE MB 2.5 ng/mL (0-5.0)
[2020-11-07] VITALS (8 sets, daily range): BP systolic 129–185; BP diastolic 52–70
[2020-11-07 05:40] LABS: BASOPHILS % 0.8 % (0.0-1.0); EOSINOPHILS # (AUTO) 0.1 (0.0-0.4); EOSINOPHILS % 2.1 % (0.0-6.0); HEMATOCRIT 32.7 % (34.2-44.1); HEMOGLOBIN 10.3 g/dL (12.0-16.0); LYMPHOCYTES # (AUTO) 1.3 (1.0-3.2); LYMPHOCYTES % 26.6 % (18.0-39.1); MEAN CORPUSCULAR HEMOGLOBIN 27.8 pg (28-32); MEAN CORPUSCULAR HGB CONC 31.5 g/dL (31-35); MEAN CORPUSCULAR VOLUME 88.1 fL (81-99); MONOCYTES # (AUTO) 0.5 (0.2-0.8); NEUTROPHILS # (AUTO) 2.9 (2.1-6.9); NEUTROPHILS % 59.9 % (38.7-80.0); PLATELET COUNT 206 x10e3/uL (140-360); RED BLOOD COUNT 3.71 x10e6/uL (3.6-5.1); RED CELL DISTRIBUTION WIDTH 14.6 % (11.7-14.4)
[2020-11-07 06:02] LABS: ALANINE AMINOTRANSFERASE 19 IU/L (0-55); ALBUMIN 3.3 g/dL (3.5-5.0); ALBUMIN/GLOBULIN RATIO 1.1 (0.8-2.0); ALKALINE PHOSPHATASE 88 IU/L (40-150); ANION GAP 9.9 mmol/L (8-16); BLOOD UREA NITROGEN 14 mg/dL (7-26); BUN/CREATININE RATIO 19 (6-25); CALCIUM 8.5 mg/dL (8.4-10.2); CARBON DIOXIDE 26 mmol/L (22-29); CHLORIDE 109 mmol/L (98-107); CREATININE, SERUM 0.72 mg/dL (0.57-1.11); EST GLOMERULAR FILTRATION RATE > 60 ML/MIN (60-); GLUCOSE 92 mg/dL (74-118); POTASSIUM 3.9 mmol/L (3.5-5.1); SODIUM 141 mmol/L (136-145)
[2020-11-07 06:44] LABS: CREATINE KINASE MB 2.2 ng/mL (0-5.0)
[2020-11-07] MEDS ORDERED: ONDANSETRON HCL 4 MG ORAL DISINTEGRATING TAB PO PRN (07:30)
[2020-11-07] MEDS: HYDRALAZINE HCL 25 MG TAB PO SCH ×3 (08:10→20:49)
[2020-11-07] MEDS: DONEPEZIL HCL 5 MG TAB PO SCH ×2 (08:10→17:23)
[2020-11-07] MEDS: ASPIRIN 81 MG CHEW TAB PO SCH (08:10)
[2020-11-07] MEDS: OXYBUTYNIN CHLORIDE XL 5 MG TAB PO SCH (08:11)
[2020-11-07] MEDS: AMLODIPINE BESYLATE 5 MG TAB PO SCH (08:11)
[2020-11-07] MEDS: ISOSORBIDE MONONITRATE 30 MG TAB CR PO SCH (08:11)
[2020-11-07] MEDS: PANTOPRAZOLE SOD 40 MG TABEC PO SCH (08:11)
[2020-11-07] MEDS: PRAMIPEXOLE DIHYDROCHLORIDE 0.25 MG TAB PO SCH ×2 (08:11→17:23)
[2020-11-07] MEDS: FAMOTIDINE 20 MG TAB PO SCH ×2 (08:11→20:49)
[2020-11-07] MEDS ORDERED: ACETAMINOPHEN 325 MG TAB PO PRN (10:30)
[2020-11-07] MEDS ORDERED: ACETAMINOPHEN 325 MG TAB ONE (10:51)
[2020-11-07] MEDS: ENOXAPARIN SOD INJ 40 MG/0.4 ML SYR SC SCH (17:23)
[2020-11-07] MEDS: SIMVASTATIN 20 MG TAB PO SCH (20:49)
[2020-11-08] VITALS: BP 121/74
[2020-11-08 04:00] VITALS: BP 169/59
[2020-11-08 07:40] VITALS: BP 172/59
[2020-11-08 07:55] VITALS: BP 172/59
[2020-11-08] MEDS: HYDRALAZINE HCL 25 MG TAB PO SCH (08:15)
[2020-11-08] MEDS: OXYBUTYNIN CHLORIDE XL 5 MG TAB PO SCH (08:15)
[2020-11-08] MEDS: ISOSORBIDE MONONITRATE 30 MG TAB CR PO SCH (08:15)
[2020-11-08] MEDS: ASPIRIN 81 MG CHEW TAB PO SCH (08:15)
[2020-11-08] MEDS: PRAMIPEXOLE DIHYDROCHLORIDE 0.25 MG TAB PO SCH (08:15)
[2020-11-08] MEDS: DONEPEZIL HCL 5 MG TAB PO SCH (08:15)
[2020-11-08] MEDS: PANTOPRAZOLE SOD 40 MG TABEC PO SCH (08:16)
[2020-11-08] MEDS: FAMOTIDINE 20 MG TAB PO SCH (08:16)
[2020-11-08] MEDS: AMLODIPINE BESYLATE 5 MG TAB PO SCH (08:16)
[2020-11-08] MEDS ORDERED: IOPAMIDOL 370 MG/ML 200 ML INFUS..BTL INJ ONE (08:46)
[2020-11-08] MEDS ORDERED: SODIUM CHLORIDE 0.9% 100 ML ONE (08:46)
[2020-11-08] MEDS ORDERED: NITROGLYCERIN 0.4 MG SUBL ONE (10:53)
[2020-11-08 14:18] VITALS: BP 138/56
== END 2020-11-08 14:45 | disposition home or self-care (01) ==
LOC: ER 08:55 → ERHOLD 10:16 → MED/SURG 13:24
PROVIDERS: ADMIT Internal Medicine; ATTEND Internal Medicine
DX: R07.89 Other chest pain (principal); I11.9 Hypertensive heart disease without heart failure; E78.5 Hyperlipidemia, unspecified; K21.9 Gastro-esophageal reflux disease without esophagitis; I25.118 Atherosclerotic heart disease of native coronary artery with other forms of angina pectoris; F03.90 Unspecified dementia, unspecified severity, without behavioral disturbance, psychotic disturbance, mood disturbance, and anxiety; Z88.5 Allergy status to narcotic agent; Z88.0 Allergy status to penicillin; Z88.2 Allergy status to sulfonamides
CPT/HCPCS: 36415 ×2; 71045; 75574; 80053 ×2; 81001; 82550 ×2; 82553 ×2; 84484 ×2; 85025 ×2; 93005; 93306; 99284; G0378 ×3; J1650 ×2; J7040; J7050; Q9967; S0164 ×2

== ENCOUNTER 2020-11-14 12:19 | Emergency (ER) | payer MEDICARE ==
[~2020-11-14 12:19] MED LIST changes: +AMLODIPINE BES2.5 MG PO; +HYDRALAZINE HCL50 MG PO
== END 2020-11-14 13:05 | disposition home or self-care (01) ==
LOC: FSED 12:20
DX: S91.201A Unspecified open wound of right great toe with damage to nail, initial encounter (principal); W22.8XXA Striking against or struck by other objects, initial encounter; Y93.01 Activity, walking, marching and hiking; Y92.008 Other place in unspecified non-institutional (private) residence as the place of occurrence of the external cause; I10 Essential (primary) hypertension; E78.5 Hyperlipidemia, unspecified; I25.10 Atherosclerotic heart disease of native coronary artery without angina pectoris; Z85.828 Personal history of other malignant neoplasm of skin
CPT/HCPCS: 99283

== ENCOUNTER 2020-12-02 07:54 | Emergency (ER) | payer MEDICARE ==
[~2020-12-02] VITALS: Ht 167.6 cm; Wt 76.7 kg
[2020-12-02] MEDS ORDERED: SODIUM CHLORIDE 0.9% 1000ML 1,000 ML IV STA (08:24)
[2020-12-02 08:46] LABS: BASOPHILS % 0.6 % (0.0-1.0); EOSINOPHILS # (AUTO) 0.1 (0.0-0.4); EOSINOPHILS % 2.1 % (0.0-6.0); HEMATOCRIT 34.3 % (34.2-44.1); HEMOGLOBIN 10.7 g/dL (12.0-16.0); LYMPHOCYTES # (AUTO) 1.1 (1.0-3.2); LYMPHOCYTES % 16.9 % (18.0-39.1); MEAN CORPUSCULAR HEMOGLOBIN 27.6 pg (28-32); MEAN CORPUSCULAR HGB CONC 31.2 g/dL (31-35); MEAN CORPUSCULAR VOLUME 88.6 fL (81-99); MONOCYTES # (AUTO) 0.6 (0.2-0.8); MONOCYTES % 9.6 % (4.4-11.3); NEUTROPHILS # (AUTO) 4.4 (2.1-6.9); NEUTROPHILS % 70.2 % (38.7-80.0); PLATELET COUNT 215 x10e3/uL (140-360); RED BLOOD COUNT 3.87 x10e6/uL (3.6-5.1); RED CELL DISTRIBUTION WIDTH 15.2 % (11.7-14.4)
[2020-12-02 08:54] LABS: CLARITY,URINE CLEAR (CLEAR); COLOR,URINE YELLOW (YELLOW)
[2020-12-02 08:55] LABS: KETONES,URINE NEGATIVE (NEGATIVE); LEUKOCYTE ESTERASE ,URINE NEGATIVE (NEGATIVE); NITRITE,URINE NEGATIVE (NEGATIVE); PROTEIN,URINE DIPSTICK 1+ (NEGATIVE); URINE UROBILINOGEN 0.2 mg/dL (0.2 - 1)
[2020-12-02 09:03] LABS: BACTERIA,URINE FEW /HPF; EPITHELIAL CELLS,URINE FEW /LPF; RBC,URINE 0-5 /HPF (0-5); WBC,URINE (MAN) 0-5 /HPF (0-5)
[2020-12-02 09:10] LABS: ALBUMIN 3.7 g/dL (3.5-5.0); ALBUMIN/GLOBULIN RATIO 1.2 (0.8-2.0); ANION GAP 14.7 mmol/L (8-16); CREATININE, SERUM 0.97 mg/dL (0.57-1.11); POTASSIUM 3.7 mmol/L (3.5-5.1)
[2020-12-02 09:11] LABS: INR 0.88; PARTIAL THROMBOPLASTIN TIME 27.5 seconds (23.8-35.5); PROTHROMBIN TIME 12.5 seconds (11.9-14.5)
[2020-12-02 09:18] LABS: CREATINE KINASE MB 2.2 ng/mL (0-5.0)
== END 2020-12-02 11:36 | disposition home or self-care (01) ==
LOC: ER 08:05
DX: E86.0 Dehydration (principal); R42 Dizziness and giddiness; R19.7 Diarrhea, unspecified; I10 Essential (primary) hypertension; E78.5 Hyperlipidemia, unspecified; I25.10 Atherosclerotic heart disease of native coronary artery without angina pectoris; Z85.828 Personal history of other malignant neoplasm of skin
CPT/HCPCS: 36415; 70450; 71045; 80053; 81001; 82550; 82553; 83690; 83880; 84484; 85025; 85610; 85730; 93005; 99285; J7030

== ENCOUNTER → 2020-12-07 | Outpatient (CLI) | payer MEDICARE | LOC: DX 09:00 | PROVIDERS: ATTEND Internal Medicine Gastroenterology | DX: D64.9 Anemia, unspecified (principal); R10.13 Epigastric pain; K21.9 Gastro-esophageal reflux disease without esophagitis; K57.30 Diverticulosis of large intestine without perforation or abscess without bleeding; Z86.010 Personal history of colon polyps | CPT/HCPCS: 74246 ==

== ENCOUNTER → 2021-01-12 | Emergency (ER) | payer MEDICARE ==
[~2021-01-12] VITALS: Ht 167.6 cm; Wt 76.7 kg
== END | disposition home or self-care (01) ==
LOC: ER 16:26
DX: R55 Syncope and collapse (principal); R42 Dizziness and giddiness; I10 Essential (primary) hypertension; E78.5 Hyperlipidemia, unspecified; I25.10 Atherosclerotic heart disease of native coronary artery without angina pectoris; Z85.828 Personal history of other malignant neoplasm of skin
CPT/HCPCS: 99282

== ENCOUNTER 2021-06-12 09:32 | Inpatient (IN) | payer MEDICARE ==
[~2021-06-12] VITALS: Ht 167.6 cm; Wt 76.7 kg
[2021-06-12 10:29] LABS: BASOPHILS % 0.5 % (0.0-1.0); EOSINOPHILS # (AUTO) 0.1 (0.0-0.4); EOSINOPHILS % 1.4 % (0.0-6.0); HEMATOCRIT 35.4 % (34.2-44.1); HEMOGLOBIN 10.9 g/dL (12.0-16.0); LYMPHOCYTES # (AUTO) 0.8 (1.0-3.2); LYMPHOCYTES % 13.5 % (18.0-39.1); MEAN CORPUSCULAR HEMOGLOBIN 28.6 pg (28-32); MEAN CORPUSCULAR HGB CONC 30.8 g/dL (31-35); MEAN CORPUSCULAR VOLUME 92.9 fL (81-99); MONOCYTES # (AUTO) 0.4 (0.2-0.8); MONOCYTES % 7.7 % (4.4-11.3); NEUTROPHILS # (AUTO) 4.2 (2.1-6.9); NEUTROPHILS % 76.5 % (38.7-80.0); PLATELET COUNT 192 x10e3/uL (140-360); RED BLOOD COUNT 3.81 x10e6/uL (3.6-5.1); RED CELL DISTRIBUTION WIDTH 14.7 % (11.7-14.4)
[2021-06-12 10:31] LABS: CLARITY,URINE CLOUDY (CLEAR); COLOR,URINE YELLOW (YELLOW); KETONES,URINE NEGATIVE (NEGATIVE); LEUKOCYTE ESTERASE ,URINE SMALL (NEGATIVE); NITRITE,URINE NEGATIVE (NEGATIVE); PROTEIN,URINE DIPSTICK 2+ (NEGATIVE); URINE UROBILINOGEN 0.2 mg/dL (0.2 - 1)
[2021-06-12 10:39] LABS: INR 0.95; PROTHROMBIN TIME 13.4 seconds (11.9-14.5)
[2021-06-12 10:40] LABS: PARTIAL THROMBOPLASTIN TIME 27.2 seconds (23.8-35.5)
[2021-06-12 10:41] LABS: BACTERIA,URINE MANY /HPF
[2021-06-12 10:42] LABS: EPITHELIAL CELLS,URINE FEW /LPF; WBC,URINE (MAN) 21-50 /HPF (0-5)
[2021-06-12 10:49] LABS: ALBUMIN 3.5 g/dL (3.5-5.0); ALBUMIN/GLOBULIN RATIO 1.1 (0.8-2.0); ANION GAP 6.7 mmol/L (8-16); CALCIUM 8.7 mg/dL (8.4-10.2); CREATININE, SERUM 0.82 mg/dL (0.57-1.11); MAGNESIUM 1.8 MG/DL (1.3-2.1); POTASSIUM 3.7 mmol/L (3.5-5.1)
[2021-06-12 10:56] LABS: CREATINE KINASE MB 2.4 ng/mL (0-5.0)
[2021-06-12] MEDS ORDERED: ONDANSETRON HCL INJ 2MG/ML 2ML 2 MG/ML VIAL IV PRN (13:00)
[2021-06-12] MEDS: SODIUM CHLORIDE 0.9% 1000ML 1,000 ML IV SCH (13:43)
[2021-06-12] MEDS: CEFTRIAXONE 1 GM in SODIUM CHLORIDE 0.9% 50ML 50 ML IV SCH ×2 (13:43→21:23)
[2021-06-12] MEDS: HYDRALAZINE HCL 25 MG TAB PO SCH ×2 (15:00→21:24)
[2021-06-12] MEDS ORDERED: NON-FORMULARY MEDICATION (Hydralazine Hcl* 50 MG) PO SCH (15:00)
[2021-06-12] MEDS: PRAMIPEXOLE DIHYDROCHLORIDE 0.25 MG TAB PO SCH (16:12)
[2021-06-12] MEDS: DONEPEZIL HCL 5 MG TAB PO SCH (16:12)
[2021-06-12] MEDS ORDERED: NON-FORMULARY MEDICATION (Lovastatin 20 MG) PO SCH (21:00)
[2021-06-12] MEDS: SIMVASTATIN 20 MG TAB PO SCH (21:22)
[2021-06-12 21:48] LABS: CREATINE KINASE MB 1.8 ng/mL (0-5.0)
[2021-06-12 22:25] VITALS: BP 143/54
[2021-06-12 22:27] VITALS: BP 143/54
[2021-06-13] VITALS (8 sets, daily range): BP systolic 136–175; BP diastolic 55–70
[2021-06-13] MEDS: SODIUM CHLORIDE 0.9% 1000ML 1,000 ML IV SCH ×3 (01:30→23:13)
[2021-06-13 05:49] LABS: EOSINOPHILS # (AUTO) 0.1 (0.0-0.4); EOSINOPHILS % 3.6 % (0.0-6.0); HEMATOCRIT 34.7 % (34.2-44.1); HEMOGLOBIN 10.8 g/dL (12.0-16.0); LYMPHOCYTES # (AUTO) 1.2 (1.0-3.2); LYMPHOCYTES % 32.1 % (18.0-39.1); MEAN CORPUSCULAR HEMOGLOBIN 28.6 pg (28-32); MEAN CORPUSCULAR HGB CONC 31.1 g/dL (31-35); MONOCYTES # (AUTO) 0.4 (0.2-0.8); MONOCYTES % 9.3 % (4.4-11.3); NEUTROPHILS # (AUTO) 2.1 (2.1-6.9); NEUTROPHILS % 53.7 % (38.7-80.0); PLATELET COUNT 180 x10e3/uL (140-360); RED BLOOD COUNT 3.77 x10e6/uL (3.6-5.1); RED CELL DISTRIBUTION WIDTH 14.7 % (11.7-14.4)
[2021-06-13 06:15] LABS: CREATINE KINASE MB 1.9 ng/mL (0-5.0)
[2021-06-13 06:19] LABS: ALBUMIN 3.3 g/dL (3.5-5.0); CALCIUM 8.7 mg/dL (8.4-10.2); CHOL/HDL RATIO 2.7 (3.0-3.6); CREATININE, SERUM 0.72 mg/dL (0.57-1.11)
[2021-06-13] MEDS: DONEPEZIL HCL 5 MG TAB PO SCH ×2 (08:50→17:14)
[2021-06-13] MEDS: HYDRALAZINE HCL 25 MG TAB PO SCH ×3 (08:50→20:34)
[2021-06-13] MEDS: ASPIRIN 81 MG CHEW TAB PO SCH (08:50)
[2021-06-13] MEDS: PRAMIPEXOLE DIHYDROCHLORIDE 0.25 MG TAB PO SCH ×2 (08:51→17:14)
[2021-06-13] MEDS: ISOSORBIDE MONONITRATE 30 MG TAB CR PO SCH (08:51)
[2021-06-13] MEDS: PANTOPRAZOLE SOD 40 MG TABEC PO SCH (08:51)
[2021-06-13] MEDS: CEFTRIAXONE 1 GM in SODIUM CHLORIDE 0.9% 50ML 50 ML IV SCH ×2 (08:53→20:33)
[2021-06-13] MEDS ORDERED: ASPIRIN 81 MG ENTERIC COATED PO SCH (09:00)
[2021-06-13] MEDS: SIMVASTATIN 20 MG TAB PO SCH (20:34)
[2021-06-14] VITALS (9 sets, daily range): BP systolic 117–190; BP diastolic 59–83
[2021-06-14] MEDS: SODIUM CHLORIDE 0.9% 1000ML 1,000 ML IV SCH ×4 (05:00→23:58)
[2021-06-14] MEDS: ASPIRIN 81 MG CHEW TAB PO SCH (09:00)
[2021-06-14] MEDS: CEFTRIAXONE 1 GM in SODIUM CHLORIDE 0.9% 50ML 50 ML IV SCH ×2 (09:00→21:06)
[2021-06-14] MEDS ORDERED: GENTAMICIN SULFATE 40 MG/ML 2 ML VIAL ONE ×2 (09:11→09:25)
[2021-06-14] MEDS ORDERED: Vancomycin IV 1 GM VIAL ONE (09:11)
[2021-06-14] MEDS ORDERED: FENTANYL CITRATE/PF 100MCG/2 ML INJ ONE (09:11)
[2021-06-14] MEDS ORDERED: MIDAZOLAM HCL 2 MG/2 ML VIAL ONE (09:11)
[2021-06-14] MEDS ORDERED: SODIUM CHLORIDE 0.9% 1000ML 2,000 ML ONE (09:11)
[2021-06-14] MEDS ORDERED: SODIUM CHLORIDE 0.9% 500ML 500 ML ONE (09:11)
[2021-06-14] MEDS ORDERED: LIDOCAINE HCL 2% LOCAL 20 ML VIAL ONE (09:11)
[2021-06-14] MEDS ORDERED: SODIUM CHLORIDE 0.9% 250ML 250 ML ONE (09:12)
[2021-06-14] MEDS ORDERED: ONDANSETRON HCL 4 MG ORAL DISINTEGRATING TAB PO PRN (11:15)
[2021-06-14] MEDS: PANTOPRAZOLE SOD 40 MG TABEC PO SCH (11:50)
[2021-06-14] MEDS: ISOSORBIDE MONONITRATE 30 MG TAB CR PO SCH (11:50)
[2021-06-14] MEDS: HYDRALAZINE HCL 25 MG TAB PO SCH ×3 (11:50→21:07)
[2021-06-14] MEDS: DONEPEZIL HCL 5 MG TAB PO SCH ×2 (11:50→21:07)
[2021-06-14] MEDS: PRAMIPEXOLE DIHYDROCHLORIDE 0.25 MG TAB PO SCH ×2 (11:50→21:07)
[2021-06-14] MEDS: TRAMADOL HCL 50 MG TAB PO PRN ×2 (13:30→19:12)
[2021-06-14] MEDS ORDERED: AMLODIPINE BESYLATE 10 MG TAB PO ONE (15:45)
[2021-06-14] MEDS: SIMVASTATIN 20 MG TAB PO SCH (21:07)
[2021-06-14] MEDS: MINOCYCLINE HCL 50 MG CAP PO SCH (21:07)
[2021-06-15] MEDS ORDERED: METOPROLOL SUCCINATE 25 MG TAB XL PO PRN (05:00)
[2021-06-15] MEDS ORDERED: METOPROLOL TARTRATE 25 MG TAB PO PRN (05:15)
[2021-06-15 05:18] VITALS: BP 177/68
[2021-06-15] MEDS ORDERED: SODIUM CHLORIDE 0.9% 1000ML 1,000 ML IV SCH (07:30)
[2021-06-15 08:27] VITALS: BP 172/70
[2021-06-15] MEDS ORDERED: LOPRESSOR25 MG PO (08:40)
[2021-06-15] MEDS ORDERED: TYLENOL325 MG PO (08:40)
[2021-06-15] MEDS ORDERED: MINOCYCLINE HCL50 MG PO (08:40)
[2021-06-15] MEDS ORDERED: NORVASC10 MG PO (08:40)
[2021-06-15] MEDS ORDERED: AMLODIPINE BESYLATE 10 MG TAB PO SCH (09:00)
[2021-06-15] MEDS ORDERED: METOPROLOL TARTRATE 50 MG TAB PO SCH (09:00)
[2021-06-15] MEDS: CEFTRIAXONE 1 GM in SODIUM CHLORIDE 0.9% 50ML 50 ML IV SCH (09:27)
[2021-06-15] MEDS: DONEPEZIL HCL 5 MG TAB PO SCH (09:28)
[2021-06-15] MEDS: ISOSORBIDE MONONITRATE 30 MG TAB CR PO SCH (09:28)
[2021-06-15] MEDS: HYDRALAZINE HCL 25 MG TAB PO SCH (09:28)
[2021-06-15] MEDS: ASPIRIN 81 MG CHEW TAB PO SCH (09:28)
[2021-06-15] MEDS: MINOCYCLINE HCL 50 MG CAP PO SCH (09:29)
[2021-06-15] MEDS: PRAMIPEXOLE DIHYDROCHLORIDE 0.25 MG TAB PO SCH (09:39)
[2021-06-15] MEDS: PANTOPRAZOLE SOD 40 MG TABEC PO SCH (09:39)
[2021-06-15 12:07] VITALS: BP 162/65
== END 2021-06-15 12:20 | disposition home or self-care (01) | DRG 243 ==
LOC: ER 09:35 → ERHOLD 12:59 → MED/SURG 20:23 → OBSVTOIN 06-13 16:43
PROVIDERS: ADMIT Internal Medicine; ATTEND Internal Medicine
PROC: 0JH606Z Insertion of Pacemaker, Dual Chamber into Chest Subcutaneous Tissue and Fascia, Open Approach (ICD-10-PCS; principal; 2021-06-14)
PROC: 02HK3JZ Insertion of Pacemaker Lead into Right Ventricle, Percutaneous Approach (ICD-10-PCS; 2021-06-14)
PROC: 02H63JZ Insertion of Pacemaker Lead into Right Atrium, Percutaneous Approach (ICD-10-PCS; 2021-06-14)
DX: I44.1 Atrioventricular block, second degree (principal); N39.0 Urinary tract infection, site not specified; R55 Syncope and collapse; R07.89 Other chest pain; I11.9 Hypertensive heart disease without heart failure; I25.10 Atherosclerotic heart disease of native coronary artery without angina pectoris; K21.9 Gastro-esophageal reflux disease without esophagitis; F03.90 Unspecified dementia, unspecified severity, without behavioral disturbance, psychotic disturbance, mood disturbance, and anxiety; E78.5 Hyperlipidemia, unspecified; Z88.5 Allergy status to narcotic agent; Z88.0 Allergy status to penicillin; Z88.2 Allergy status to sulfonamides; Z88.8 Allergy status to other drugs, medicaments and biological substances; Z91.018 Allergy to other foods
CPT/HCPCS: 33208; 36415; 71045; 75820; 80053; 80061; 81001; 82550; 82553; 83735; 83880; 84443; 84484; 85025; 85610; 85730; 87086; 87186; 93005; 94799; 96360; 99152; 99153; 99251; 99284; C1769; C1785; C1898; G0378; J0696; J1580; J2001; J2250; J3010; J3370; J7030; J7040; J7050; U0002

== ENCOUNTER 2021-08-06 13:34 | Emergency (ER) | payer MEDICARE ==
[~2021-08-06] VITALS: Ht 170.2 cm; Wt 71.7 kg
[~2021-08-06 13:34] MED LIST changes: +LOPRESSOR25 MG PO; +MINOCYCLINE HCL50 MG PO; +NORVASC10 MG PO; +TYLENOL325 MG PO
[2021-08-06] MEDS ORDERED: SODIUM CHLORIDE 0.9% 1000ML 1,000 ML IV STA (13:50)
[2021-08-06] MEDS ORDERED: DONNATAL/LIDOCAINE/MAALOX 30 ML SUSP PO ONE (14:00)
[2021-08-06] MEDS ORDERED: LIDOCAINE VISC 2% SOLN 15 ML UDC ONE (14:03)
[2021-08-06] MEDS ORDERED: MAGNESIUM/ALUMINUM/SIMETHICONE 30 ML UDC ONE (14:03)
[2021-08-06] MEDS ORDERED: BELLADONNA ALK/PHENOBARBITAL 5 ML UDC ONE (14:03)
[2021-08-06] MEDS ORDERED: SODIUM CHLORIDE 0.9% 1000ML 1,000 ML ONE (14:03)
[2021-08-06] MEDS ORDERED: SODIUM CHLORIDE 0.9% 50ML 50 ML ONE (14:39)
[2021-08-06] MEDS ORDERED: IOPAMIDOL 370 MG/ML 200 ML INFUS..BTL INJ ONE (14:39)
[2021-08-06 16:24] VITALS: BP 187/92
== END 2021-08-06 16:25 | disposition home or self-care (01) ==
LOC: FSED 13:40
DX: R19.7 Diarrhea, unspecified (principal); E86.0 Dehydration; R10.30 Lower abdominal pain, unspecified; I10 Essential (primary) hypertension; E78.5 Hyperlipidemia, unspecified; I25.10 Atherosclerotic heart disease of native coronary artery without angina pectoris
CPT/HCPCS: 74177; 80053; 81003; 85025; 99283; J7030; Q9967